=== PATIENT | female | born 1995 | race Caucasian/White ===

== ENCOUNTER 2017-08-17 04:12 | Inpatient (IN) | payer OTHER ==
[2017-08-17] MEDS ORDERED: PROMETHAZINE 25 MG/ML VIAL IM PRN (04:21)
[2017-08-17] MEDS ORDERED: MEPERIDINE HCL 25 MG/0.5 ML IV PRN (04:21)
[2017-08-17] MEDS ORDERED: CARBOPROST TROME 250 MCG/ML IM PRN (04:21)
[2017-08-17] MEDS ORDERED: BUTORPHANOL 1 MG/ML INJ IV PRN (04:21)
[2017-08-17] MEDS ORDERED: METHYLERGONOVINE 0.2MG/ML AMP IM PRN (04:21)
[2017-08-17] MEDS ORDERED: MIDAZOLAM HCL 2 MG/2 ML INJ IV PRN (04:21)
[2017-08-17] MEDS ORDERED: Ringers Lactate 1,000 ML IV PRN (04:21)
[2017-08-17] MEDS ORDERED: OXYTOCIN/LR 20 UNIT/1,000 ML BAG IV SCH ×2 (05:00→22:00)
[2017-08-17] MEDS ORDERED: Ringers Lactate 1,000 ML IV SCH (05:00)
[2017-08-17 05:11] LABS: RPR Titer ND
[2017-08-17 05:13] LABS: Absolute Lymphocytes (CBC) 2.1 K/uL (0.7-4.9); Absolute Monocytes 0.9 K/uL (0.1-1.3); Absolute Neutrophil 10.2 K/uL (1.8-8.0); Basophils % 0.5 % (0-1.3); Eosinophils % 1.4 % (0-4.4); Hematocrit 35.7 % (36.0-45.0); Lymphocytes % 15.4 % (15.3-44.8); MCH 30.5 pg (27.0-35.0); MCV 86.9 fL (80-100); MPV 8.2 fL (7.6-11.3); RBC Red Blood Cell Count 4.11 M/uL (3.86-4.86)
[2017-08-17 05:18] LABS: Urine Appearance CLEAR; Urine Bilirubin NEGATIVE (NEG); Urine Blood NEGATIVE (NEG); Urine Color YELLOW; Urine Glucose NEGATIVE (NEG); Urine Protein NEGATIVE (NEG); Urine Specific Gravity 1.015 (1.005-1.030); Urine Urobilinogen 0.2 mg/dL (0.2-1.0)
[2017-08-17 05:21] LABS: Urine Microscopic Reflex ORDER UMIC
[2017-08-17 05:33] LABS: Urine Bacteria 20-50 /HPF (<20); Urine Culture Reflex Order REFLEXED; Urine RBC NONE SEEN /HPF (NONE SEEN)
[2017-08-17 06:27] VITALS: BMI 36.5
--- NOTE | 2017-08-17 11:12 | PREOPHP ---
Date of Admission: 08/17/2017 A 21-year-old, primigravida, 39 weeks. Rh negative, has received RhoGAM during the . Immun e to Rubella. Negative beta strep screen. The patient is 2.5 cm, 50% effaced, but cervix is posteri or and baby is still high. This has all been discussed with the patient in the office. She is contr acting regularly, but is not uncomfortable at this point. We will increase Pitocin and await spontan eous rupture of membranes or baby's descent to a lower station where we can safely rupture of membran es. Full labor talk given. Anticipate delivery sometime later today. DARRYN/WALLY Voice ID: [id number]
--- NOTE | 2017-08-17 14:57 | PN ---
The patient is on 24 milliunits, emma regularly, but not really uncomfortable at this point. FHTs normal and reactive. The patient is now 3 cm, 50% effaced, vertex, -1 station. Rupture of memb ranes, clear fluid. Anticipate more rapid progress from this point forward. DARRYN/WALLY Voice ID: [id number] Report ID: [id number]
[2017-08-17] MEDS ORDERED: ROPIVACAINE HCL 100 ML IV PRN (16:33)
[2017-08-17] MEDS ORDERED: ROPIVACAINE HCL 0.2% 20ML AMP SQ ONE (17:00)
[2017-08-17] MEDS ORDERED: FENTANYL CITR 100 MCG/2 ML IV ONE (17:00)
--- NOTE | 2017-08-17 17:32 | PN ---
The patient is now 7 cm, 0 station. Starting to rotate the baby into more anterior position, 90-100% effaced, emma regularly. She is requesting epidural. We will call Anesthesia Department and get that done relatively soon. Anticipate delivery fairly soon. She is in the active phase at this point. DARRYN/WALLY Voice ID: [id number] Report ID: [id number]
[2017-08-17] MEDS ORDERED: METHYLERGONOVINE 0.2MG/ML AMP IM ONE (19:08)
[2017-08-17] MEDS ORDERED: LIDOCAINE 2% INJ, 20 mL 20 ML ONE (21:08)
[2017-08-17] MEDS ORDERED: DIPHENHYDRAMINE 25 MG TAB/CAP PO PRN (21:40)
[2017-08-17] MEDS ORDERED: IBUPROFEN 200 MG TAB PO PRN (21:40)
[2017-08-17] MEDS ORDERED: Oxycodone HCl/Acetaminophen 1 TAB TAB PO PRN (21:40)
[2017-08-17] MEDS ORDERED: DOCUSATE NA/SENNA CONC 1 TAB PO PRN (21:40)
[2017-08-17] MEDS ORDERED: ACETAMINOPHEN 500 MG TAB PO PRN (21:40)
[2017-08-17] MEDS ORDERED: BISACODYL 10 MG RECTAL SUPP RECT PRN (21:40)
--- NOTE | 2017-08-17 23:53 | PN ---
The patient is now approximately 9 to 9.5 cm. She has a little bit of cervix on the right side. She pushes very well, but she has a full bladder, we will empty her bladder, so she can push more effect ively. Check her again in about 10 to 15 minutes. By that time, she should be completely dilated or the cervix should be able to reduce. I think that we are ready for delivery soon. Baby looks good. Good variability. Apparently she was having some variables earlier, but it looks perfectly normal at this point. DARRYN/WALLY Voice ID: [id number] Report ID: [id number]
--- NOTE | 2017-08-18 05:27 | OP ---
Surgeon: Juan Sarmiento MD Indication And Procedure: A 21-year-old primigravida, 39 weeks, rupture of membranes at approximatel y 3 cm, clear fluid. During the labor, the patient received Stadol IV, Phenergan IM, and epidural an esthesia at approximately 7 cm. Noted to be persistent occiput posterior. Epidural was allowed to p artially wear off so the patient could push more effectively. Nonetheless, the patient had to push f or an hour and 40 minutes but finally delivered of a 7-pound estimated female, persistent occiput pos terior, Apgars 8 and 9. Small second-degree episiotomy to admit more room for the baby. Episiotomy repaired with 2-0 chromic under local infiltration. Schultze delivery of the placenta which was heav tristin calcified but otherwise normal. Estimated blood loss 300 cc. The patient is Rh negative, has re ceived RhoGAM during the . Beta strep negative. Final Diagnosis: Term intrauterine at 39 weeks, vaginal delivery, epidural anesthesia, per sistent occiput posterior. DARRYN/WALLY Voice ID: [id number] Report ID: [id number]
[2017-08-18] MEDS ORDERED: Rho(D) IG (HUMAN) 300 MCG SYR IM ONE (09:23)
[2017-08-18] MEDS: Oxycodone HCl/Acetaminophen 1 TAB TAB PO PRN ×3 (09:46→20:50)
--- NOTE | 2017-08-18 11:13 | DS ---
Hospital Course: A 21-year-old, primigravida, 39 weeks, delivered a 6 pound 13 ounce female. Apgars 8 and 9, after 1 hour and 40 minutes of pushing. Persistent occiput posterior. Second-degree episi otomy performed, repaired with 2-0 chromic. Schultze delivery of the placenta, inspected, noted to b e heavily calcified, but otherwise normal. A 300 cc blood loss. Rh negative, received RhoGAM during the . Baby is Rh positive, therefore she will receive RhoGAM before she is dismissed. Thi s morning, she is afebrile, ambulating, voiding. Lochia is normal. Will be dismissed either later t hattie or tomorrow morning to report back to my office in 6 weeks for followup, to report any temperatu re elevation of 100 degrees or greater, severe pain, heavy bleeding, or any other type of abnormaliti es. Dismissed with tramadol for analgesia, but only 10 tablets and she knows she can take Motrin. Cinda murcia said, if she wishes, she will be bottle feedings. No post epidural problems this morning. Final Diagnoses: Term intrauterine 39 weeks, vaginal delivery, persistent occiput posterio r, epidural anesthesia, Rh negative, RhoGAM pending. DARRYN/WALLY Voice ID: [id number] Report ID: [id number]
[2017-08-19 02:00] LABS: RPR (Rapid Plasma Reagin) NON-REACT (NON-REACT)
--- NOTE | 2017-08-19 07:41 | PN ---
No complaints or problems. Vital signs are all normal. We went over dismissal instructions again to day. She has no questions. She will be dismissed this morning. To return to my office in 6 weeks f or followup. DARRYN/WALLY Voice ID: [id number] Report ID: [id number]
[2017-08-19] MEDS: Oxycodone HCl/Acetaminophen 1 TAB TAB PO PRN (07:58)
[2017-08-19 08:12] VITALS: BP 133/75; TEMP 98.2
[2017-08-20 03:31] LABS: HBsAG Nonreactive (Nonreactive)
== END 2017-08-19 09:30 | disposition home or self-care (01) | DRG 775 ==
LOC: 2ND-WC 04:12
PROVIDERS: ADMIT Specialist; ATTEND Specialist
PROC: 10E0XZZ Delivery of Products of Conception, External Approach (ICD-10-PCS; principal; 2017-08-17)
PROC: 0W8NXZZ Division of Female Perineum, External Approach (ICD-10-PCS; 2017-08-17)
PROC: 10907ZC Drainage of Amniotic Fluid, Therapeutic from Products of Conception, Via Natural or Artificial Opening (ICD-10-PCS; 2017-08-17)
PROC: 3E0234Z Introduction of Serum, Toxoid and Vaccine into Muscle, Percutaneous Approach (ICD-10-PCS; 2017-08-18)
DX: O64.0XX0 Obstructed labor due to incomplete rotation of fetal head, not applicable or unspecified (principal); O26.893 Other specified pregnancy related conditions, third trimester; O99.513 Diseases of the respiratory system complicating pregnancy, third trimester; J45.909 Unspecified asthma, uncomplicated; Z37.0 Single live birth; Z3A.39 39 weeks gestation of pregnancy; Z67.41 Type O blood, Rh negative; Z87.891 Personal history of nicotine dependence; Z91.040 Latex allergy status
CPT/HCPCS: 36415; 81003; 81015; 85025; 85461; 86592; 86850; 86870; 86900; 86901; 87086; 87088; 87340; J0595; J2210; J2550; J2590; J2790; J2795; J3010

== ENCOUNTER 2018-01-30 11:36 | Emergency (ER) | payer OTHER ==
[2018-01-30] MEDS ORDERED: AMOX/K CLAV 875 MG TAB ONE (13:41)
[2018-01-30] MEDS ORDERED: ALBUTEROL 2.5 MG/3 ML NEB SOL ONE (13:41)
--- NOTE | 2018-01-30 14:03 | ER ---
Nurse's Notes [facility] Name: Susanne Fagan Age: 22 yrs Sex: Female : 1995 Arrival Date: 01/30/2018 Time: 11:40 Bed 25 Private MD: Juan Sarmiento B Diagnosis: Otitis media, unspecified, left ear;Bronchitis, not specified as acute or chronic Presentation: 01/30 11:53 Presenting complaint: Patient states: Fever, Left ear pain, sore throat stuffy nose and sg shortness of breath, bodyaches and fever off and is so limited on OTC medications per her provider. Transition of care: patient was not received from another setting of care. Onset of symptoms was January 30, 2018. Risk Assessment: Do you want to hurt yourself or someone else? Patient reports no desire to harm self or others. Initial Sepsis Screen: Does the patient meet any 2 criteria? No. Patient's initial sepsis screen is negative. Does the patient have a suspected source of infection? No. Patient's initial sepsis screen is negative. Care prior to arrival: None. 11:53 Method Of Arrival: Ambulatory 11:53 Acuity: MOLLY 4 sg Triage Assessment: 13:00 General: Appears in no apparent distress. well groomed, well developed, well nourished, kr2 Behavior is calm, cooperative, appropriate for age. 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 - Social history:: Smoking status: Patient uses tobacco products, denies chronic smoking, but will smoke occasionally. - Ebola Screening: : Patient negative for fever greater than or equal to 101.5 degrees Fahrenheit, and additional compatible Ebola Virus Disease symptoms Patient denies exposure to infectious person Patient denies travel to an Ebola-affected area in the 21 days before illness onset No symptoms or risks identified at this time. Screenin:00 Abuse screen: Denies threats or abuse. Denies injuries from another. Nutritional kr2 screening: No deficits noted. Tuberculosis screening: No symptoms or risk factors identified. Fall Risk None identified. Assessment: 13:00 General: Appears in no apparent distress. uncomfortable, well groomed, well developed, kr2 well nourished, Behavior is calm, cooperative, appropriate for age. Pain: Pain: Complains of pain in left ear Pain currently is 10 out of 10 on a pain scale. Quality of pain is described as aching, Is continuous, Alleviated by nothing. Neuro: Level of Consciousness is awake, alert, obeys commands, Oriented to person, place, time, situation, Appropriate for age. Cardiovascular: Capillary refill < 3 seconds in bilateral fingers Patient's skin is warm and dry. Respiratory: Reports cough that is productive, Airway is patent Respiratory effort is even, unlabored, Respiratory pattern is regular, symmetrical, Breath sounds are clear bilaterally. GI: Abdomen is flat, non-distended. EENT: Nares with drainage noted bilaterally Oral mucosa is moist. EENT: Throat is reddened Reports nasal congestion Sore throat. Derm: Skin is intact, is healthy with good turgor, Skin is pink, warm \T\ dry. 13:00 Musculoskeletal: Circulation, motion, and sensation intact. kr2 14:00 Reassessment: Patient appears in no apparent distress at this time. Patient and/or kr2 family updated on plan of care and expected duration. Pain level reassessed. Patient is alert, oriented x 3, equal unlabored respirations, skin warm/dry/pink. Patient states feeling better. Vital Signs: 11:55 BP 119 / 71; Pulse 110; Resp 20; Temp 97.6; Pulse Ox 99% on R/A; Weight 97.52 kg; sg Height 5 ft. 10 in. (177.80 cm); Pain 10/10; 13:30 BP 120 / 84; Pulse 100; Resp 18; Pulse Ox 100% on R/A; kr2 11:55 Body Mass Index 30.85 (97.52 kg, 177.80 cm) ED Course: 11:40 Patient arrived in ED. sb2 11:41 Juan Sarmiento MD is Private Physician. sb2 11:43 Leslie Scales FNP-C is [facility]. kb 11:43 Vu Sibley MD is Attending Physician. kb 11:53 Arm band placed on. sg 11:55 Triage completed. sg 13:00 Patient has correct armband on for positive identification. Bed in low position. Call kr2 light in reach. Side rails up X 1. Pulse ox on. NIBP on. Door closed. Warm blanket given. Head of bed elevated. 14:00 No provider procedures requiring assistance completed. Patient did not have IV access kr2 during this emergency room visit. 14:15 Shirley Salamanca, RN is Primary Nurse. kr2 Administered Medications: 13:37 Drug: Albuterol 2.5 mg Route: Inhalation; kr2 14:00 Follow up: Response: No adverse reaction; Marked relief of symptoms kr2 13:37 Drug: Amoxicillin 875 mg Route: PO; kr2 14:00 Follow up: Response: No adverse reaction kr2 Outcome: 14:00 Discharged to home ambulatory. kr2 14:00 Condition: good 14:00 Discharge instructions given to patient, Instructed on discharge instructions, follow up and referral plans. medication usage, Demonstrated understanding of instructions, follow-up care, medications, Prescriptions given X 2. 14:01 Discharge ordered by . elliott 14:16 Patient left the ED. kr2 Signatures: Leslie Scales, TOWER HAND-C TOWER HAND-Ckb Lauro Monet RN RN sg Shirley Salamanca, RN RN kr2 Megan Fowler sb2 Corrections: (The following items were deleted from the chart) 01/31 01:03 01/30 13:00 Pain: kr2 kr2 01/31 01:03 01/30 13:00 EENT: Nares with drainage noted bilaterally Oral mucosa is moist. kr2 kr2 01/31 01:03 01/30 13:00 EENT: Reports nasal congestion kr2 kr2
--- NOTE | 2018-01-30 14:03 | EDPHYS ---
Physician Documentation [facility] Name: Susanne Fagan Age: 22 yrs Sex: Female : 1995 Arrival Date: 01/30/2018 Time: 11:40 Bed 25 Private MD: Juan Sarmiento B ED Physician Vu Sibley HPI: 01/30 13:33 This 22 yrs old Female presents to ER via Ambulatory with complaints of Flu kb Symptoms. 13:33 The patient or guardian reports cough, that is intermittent, described as moderate, kb with productive sputum, flu symptoms, low-grade fever, myalgias. The patient has not experienced similar symptoms in the past. The patient has not recently seen a physician. 13:34 Onset: The symptoms/episode began/occurred 2 day(s) ago. Severity of symptoms: At their kb worst the symptoms were moderate, in the emergency department the symptoms are unchanged. Modifying factors: The symptoms are alleviated by nothing, the symptoms are aggravated by nothing. Associated signs and symptoms: Pertinent positives: earache, fever, rhinorrhea, sore throat, vomiting, Pertinent negatives: chest pain, diarrhea, nausea. 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 - Social history:: Smoking status: Patient uses tobacco products, denies chronic smoking, but will smoke occasionally. - Ebola Screening: : Patient negative for fever greater than or equal to 101.5 degrees Fahrenheit, and additional compatible Ebola Virus Disease symptoms Patient denies exposure to infectious person Patient denies travel to an Ebola-affected area in the 21 days before illness onset No symptoms or risks identified at this time. ROS: 13:31 Cardiovascular: Negative for chest pain, palpitations, and edema, Abdomen/GI: Negative kb for abdominal pain, nausea, vomiting, diarrhea, and constipation, Back: Negative for injury and pain, : Negative for injury, bleeding, discharge, and swelling, MS/Extremity: Negative for injury and deformity, Skin: Negative for injury, rash, and discoloration, Neuro: Negative for headache, weakness, numbness, tingling, and seizure. 13:31 Constitutional: Positive for body aches, chills, fatigue, fever, malaise, Negative for poor PO intake, weight loss. 13:31 ENT: Positive for ear pain, rhinorrhea, sinus congestion, sore throat. 13:31 Respiratory: Positive for cough, with clear sputum, Negative for dyspnea on exertion, hemoptysis, orthopnea, pleurisy, shortness of breath, sputum production, wheezing. Exam: 13:31 Constitutional: This is a well developed, well nourished patient who is awake, alert, kb and in no acute distress. Head/Face: Normocephalic, atraumatic. Neck: Trachea midline, no thyromegaly or masses palpated, and no cervical lymphadenopathy. Supple, full range of motion without nuchal rigidity, or vertebral point tenderness. No Meningismus. Chest/axilla: Normal chest wall appearance and motion. Nontender with no deformity. No lesions are appreciated. Cardiovascular: Regular rate and rhythm with a normal S1 and S2. No gallops, murmurs, or rubs. Normal PMI, no JVD. No pulse deficits. Abdomen/GI: Soft, non-tender, with normal bowel sounds. No distension or tympany. No guarding or rebound. No evidence of tenderness throughout. Skin: Warm, dry with normal turgor. Normal color with no rashes, no lesions, and no evidence of cellulitis. MS/ Extremity: Pulses equal, no cyanosis. Neurovascular intact. Full, normal range of motion. Neuro: Awake and alert, GCS 15, oriented to person, place, time, and situation. Cranial nerves II-XII grossly intact. Motor strength 5/5 in all extremities. Sensory grossly intact. Cerebellar exam normal. Normal gait. 13:31 Respiratory: the patient does not display signs of respiratory distress, Respirations: normal, Breath sounds: wheezing: expiratory that is moderate, is scattered. 13:33 ENT: External ear(s): are unremarkable, Ear canal(s): are normal, TM's: bulging, on the kb left, erythema, that is moderate, on the left, Nose: is normal, Mouth: is normal, Posterior pharynx: is normal. Vital Signs: 11:55 BP 119 / 71; Pulse 110; Resp 20; Temp 97.6; Pulse Ox 99% on R/A; Weight 97.52 kg; sg Height 5 ft. 10 in. (177.80 cm); Pain 10/10; 13:30 BP 120 / 84; Pulse 100; Resp 18; Pulse Ox 100% on R/A; kr2 11:55 Body Mass Index 30.85 (97.52 kg, 177.80 cm) MDM: 13:00 Patient medically screened. [facility] 13:31 Data reviewed: vital signs, nurses notes. Data interpreted: Pulse oximetry: on room air kb is 99 %. Interpretation: normal. Counseling: I had a detailed discussion with the patient and/or guardian regarding: the historical points, exam findings, and any diagnostic results supporting the discharge/admit diagnosis, lab results, the need for outpatient follow up, a family practitioner, to return to the emergency department if symptoms worsen or persist or if there are any questions or concerns that arise at home. 01/30 11:59 Order name: Strep 01/30 11:59 Order name: Flu 01/30 12:34 Order name: Group A Streptococcus Rapid Sc; Complete Time: 12:41 EDMS 01/30 12:34 Order name: Influenza Screen (A ; Complete Time: 12:41 EDMS Administered Medications: 13:37 Drug: Albuterol 2.5 mg Route: Inhalation; kr2 14:00 Follow up: Response: No adverse reaction; Marked relief of symptoms kr2 13:37 Drug: Amoxicillin 875 mg Route: PO; kr2 14:00 Follow up: Response: No adverse reaction 2 Disposition: 01/30/18 14:01 Discharged to Home. Impression: Otitis media, unspecified, left ear, Bronchitis, not specified as acute or chronic. - Condition is Stable. - Discharge Instructions: Otitis Media, Adult, [id number], Acute Bronchitis, [id number]. - Prescriptions for Amoxicillin 875 mg Oral Tablet - take 1 tablet by ORAL route every 12 hours for 10 days; 20 tablet. Albuterol Sulfate 90 mcg/actuation - inhale 1-2 puff by INHALATION route every 4-6 hours; 1 Inhaler. - Medication Reconciliation Form, Thank You Letter, Antibiotic Education, Prescription Opioid Use form. - Follow up: Emergency Department; When: As needed; Reason: Worsening of condition. Follow up: Private Physician; When: 2 - 3 days; Reason: Recheck today's complaints, Continuance of care, Re-evaluation by your physician. Addendum: 02/01/2018 07:22 Co-signature as Attending Physician, Vu Sibley MD I agree with the assessment and c foley plan of care. Signatures: Dispatcher [employer] EDMS Leonardo Scalesistin, ANAHY-C ANAHY-Lauro Lee RN RN sg Anderson, Corey, MD MD cha Reaves, Karey, RN RN kr2 Corrections: (The following items were deleted from the chart) 01/30 13:33 13:31 ENT: Positive for rhinorrhea, sinus congestion, sore throat, kb kb 13:33 13:31 Constitutional: This is a well developed, well nourished patient who is awake, kb alert, and in no acute distress. Head/Face: Normocephalic, atraumatic. ENT: Nares patent. No nasal discharge, no septal abnormalities noted. Tympanic membranes are normal and external auditory canals are clear. Oropharynx with no redness, swelling, or masses, exudates, or evidence of obstruction, uvula midline. Mucous membranes moist. Neck: Trachea midline, no thyromegaly or masses palpated, and no cervical lymphadenopathy. Supple, full range of motion without nuchal rigidity, or vertebral point tenderness. No Meningismus. Chest/axilla: Normal chest wall appearance and motion. Nontender with no deformity. No lesions are appreciated. Cardiovascular: Regular rate and rhythm with a normal S1 and S2. No gallops, murmurs, or rubs. Normal PMI, no JVD. No pulse deficits. Abdomen/GI: Soft, non-tender, with normal bowel sounds. No distension or tympany. No guarding or rebound. No evidence of tenderness throughout. Skin: Warm, dry with normal turgor. Normal color with no rashes, no lesions, and no evidence of cellulitis. MS/ Extremity: Pulses equal, no cyanosis. Neurovascular intact. Full, normal range of motion. Neuro: Awake and alert, GCS 15, oriented to person, place, time, and situation. Cranial nerves II-XII grossly intact. Motor strength 5/5 in all extremities. Sensory grossly intact. Cerebellar exam normal. Normal gait. kb 14:16 14:01 01/30/2018 14:01 Discharged to Home. Impression: Otitis media, unspecified, left kr2 ear; Bronchitis, not specified as acute or chronic. Condition is Stable. Discharge Instructions: Otitis Media, Adult, [id number], Acute Bronchitis, [id number]. Prescriptions for Amoxicillin 875 mg Oral Tablet - take 1 tablet by ORAL route every 12 hours for 10 days; 20 tablet, Albuterol Sulfate 90 mcg/actuation - inhale 1-2 puff by INHALATION route every 4-6 hours; 1 Inhaler. and Forms are Medication Reconciliation Form, Thank You Letter, Antibiotic Education, Prescription Opioid Use. Follow up: Emergency Department; When: As needed; Reason: Worsening of condition. Follow up: Private Physician; When: 2 - 3 days; Reason: Recheck today's complaints, Continuance of care, Re-evaluation by your physician. kb
[2018-01-30 16:10] VITALS: BP 119/71; TEMP 97.6; O2SAT 99
== END 2018-01-30 14:16 | disposition home or self-care (01) ==
LOC: ER 11:36
DX: J40 Bronchitis, not specified as acute or chronic (principal); H66.92 Otitis media, unspecified, left ear; Z72.0 Tobacco use
CPT/HCPCS: 87070; 87081; 87804; 99284

== ENCOUNTER 2018-04-16 19:19 | Emergency (ER) | payer OTHER ==
[2018-04-16 20:20] LABS: Urine Blood TRACE (NEG); Urine Glucose NEGATIVE (NEG); Urine Protein 1+ (NEG); Urine Specific Gravity 1.015 (1.005-1.030)
[2018-04-16 20:57] LABS: Absolute Lymphocytes (CBC) 2.2 K/uL (0.7-4.9); Absolute Monocytes 0.7 K/uL (0.1-1.3); Absolute Neutrophil 8.9 K/uL (1.8-8.0); Basophils % 0.9 % (0-1.3); Eosinophils % 0.4 % (0-4.4); Hematocrit 40.2 % (36.0-45.0); Lymphocytes % 18.6 % (15.3-44.8); MPV 7.7 fL (7.6-11.3); Monocytes % 5.8 % (3.3-12.3); RBC Red Blood Cell Count 4.49 M/uL (3.86-4.86)
[2018-04-16 21:15] LABS: Urine Amorphous Sediment 4+ /HPF (NONE SEEN); Urine Bacteria <20 /HPF (<20); Urine Culture Reflex Order NOT NEEDED; Urine RBC <5 /HPF (NONE SEEN)
[2018-04-16 21:31] LABS: BUN Blood Urea Nitrogen 6 mg/dL (7-18); Bicarbonate 26 mmol/L (21-32); Glucose Level 88 mg/dL (74-106); HCG, Quantitative 12762 mIU/mL (1-3); Potassium 3.6 mmol/L (3.5-5.1); Sodium Level 140 mmol/L (136-145)
[2018-04-16] MEDS ORDERED: ACETAMINOPHEN 500 MG TAB ONE (23:17)
--- NOTE | 2018-04-16 23:49 | ER ---
Nurse's Notes [facility] Name: Susanne Fagan Age: 22 yrs Sex: Female : 1995 Arrival Date: 04/16/2018 Time: 19:21 Bed 18 Private MD: Juan Sarmiento B Diagnosis: Threatened Presentation: 04/16 19:29 Presenting complaint: Patient states: She has had abdominal cramping, low back pain and aj1 light vaginal bleeding for the past 3 days. States that she saw her OB yesterday and was told that everything was normal with her . Patient reports that her pain is worse today. States that she is RH negative. Transition of care: patient was not received from another setting of care. Onset of symptoms was April 14, 2018. Risk Assessment: Do you want to hurt yourself or someone else? Patient reports no desire to harm self or others. Initial Sepsis Screen: Does the patient meet any 2 criteria? No. Patient's initial sepsis screen is negative. Does the patient have a suspected source of infection? No. Patient's initial sepsis screen is negative. Care prior to arrival: None. 19:29 Method Of Arrival: Ambulatory aj1 19:29 Acuity: MOLLY 3 aj1 Triage Assessment: 19:31 General: Appears in no apparent distress. uncomfortable, Behavior is cooperative, aj1 restless. Pain: Complains of pain in low back area, right lower quadrant and left lower quadrant Pain currently is 10 out of 10 on a pain scale. GI: Reports lower abdominal pain. 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 - Social history:: Smoking status: Patient uses tobacco products, smokes one-half pack cigarettes per day. - Ebola Screening: : Patient denies travel to an Ebola-affected area in the 21 days before illness onset. Screenin:33 Abuse screen: Denies threats or abuse. Denies injuries from another. Nutritional aj1 screening: No deficits noted. Tuberculosis screening: No symptoms or risk factors identified. 22:13 Fall Risk None identified. ak1 Assessment: 19:33 General: Appears in no apparent distress. uncomfortable, Behavior is cooperative, aj1 restless. Pain: Complains of pain in left lower quadrant and right lower quadrant and low back area Pain does not radiate. Pain currently is 10 out of 10 on a pain scale. Quality of pain is described as crampy, Pain began 2-3 days ago. Neuro: Level of Consciousness is awake, alert, obeys commands, Oriented to person, place, time, situation. Cardiovascular: Patient's skin is warm and dry. Respiratory: Airway is patent Respiratory effort is even, unlabored, Respiratory pattern is regular, symmetrical. GI: Abdomen is round Bowel sounds present X 4 quads. Abd is soft and non tender X 4 quads. Reports lower abdominal pain, nausea, vomiting. : Reports vaginal bleeding that is light flow. EENT: No signs and/or symptoms were reported regarding the EENT system. Derm: No signs and/or symptoms reported regarding the dermatologic system. Skin is pink, warm \T\ dry. normal. Musculoskeletal: No signs and/or symptoms reported regarding the musculoskeletal system. Circulation, motion, and sensation intact. 20:30 Reassessment: Patient appears in no apparent distress at this time. No changes from aj1 previously documented assessment. Patient and/or family updated on plan of care and expected duration. Pain level reassessed. Patient is alert, oriented x 3, equal unlabored respirations, skin warm/dry/pink. 21:14 Reassessment: Patient appears in no apparent distress at this time. No changes from aj1 previously documented assessment. Patient and/or family updated on plan of care and expected duration. Pain level reassessed. Patient is alert, oriented x 3, equal unlabored respirations, skin warm/dry/pink. 23:02 Reassessment: pt informed of wait for rogam IM injections. pt informed of no bleeding ak1 found during pelvic exam. 04/17 00:00 Reassessment: Patient and/or family updated on plan of care and expected duration. Pain ea level reassessed. Patient is alert, oriented x 3, equal unlabored respirations, skin warm/dry/pink. Discharge instructions given to patient, verbalized the understanding of instructions. Patient denies pain at this time. Vital Signs: 04/16 19:31 BP 120 / 77; Pulse 98; Resp 18; Temp 98.5(O); Pulse Ox 100% on R/A; Weight 94.8 kg (R); aj1 Height 5 ft. 8 in. (172.72 cm) (R); Pain 10/10; 21:14 BP 114 / 75; Pulse 69; Resp 18; Pulse Ox 97% on R/A; aj1 19:31 Body Mass Index 31.78 (94.80 kg, 172.72 cm) aj1 Vitals: 20:34 Heart Tones 152. aj1 ED Course: 19:21 Patient arrived in ED. am2 19:22 Juan Sarmiento MD is Private Physician. am2 19:26 Tay Asher NP is PHCP. pm1 19:26 Corazon Castillo MD is Attending Physician. pm1 19:29 Cori Driver, FLORENCE is Primary Nurse. aj1 19:31 Triage completed. aj1 19:31 Arm band placed on Patient placed in an exam room. aj1 19:33 Patient has correct armband on for positive identification. Bed in low position. Call aj1 light in reach. Side rails up X 1. 19:33 No provider procedures requiring assistance completed. aj1 20:50 Inserted saline lock: 22 gauge in right antecubital area, using aseptic technique. lt1 20:50 Initial lab(s) drawn, by ca, sent to lab. Urine collected: clean catch specimen, clear. lt1 22:37 pelvic exam. no blood noted. ak1 23:47 Juan Sarmiento MD is Referral Physician. pm1 02 00:00 IV discontinued, intact, bleeding controlled, No redness/swelling at site. Pressure ea dressing applied. Administered Medications: 04/16 23:08 Drug: Tylenol 500 mg Route: PO; ak1 23:49 Follow up: Response: No adverse reaction ak1 23:40 Drug: RhoGAM (Human) 300 mcg Route: IM; Site: right gluteus; ak1 23:50 Follow up: Response: No adverse reaction ak1 Outcome: 22:37 Condition: good ak1 23:48 Discharge ordered by . pm1 23:55 Instructed on discharge instructions, follow up and referral plans. Demonstrated ea understanding of instructions, follow-up care. 04/17 00:00 Discharged to home ambulatory. ea 00:07 Patient left the ED. ea Signatures: Cori Driver RN RN aj1 Kylah Qiu RN RN ak1 Tay Asher, DRAG SAWYER DRAG SAWYER pm1 Brie Feliz am2 Mary Ram RN RN ea Tran, Leah 1
--- NOTE | 2018-04-16 23:49 | EDPHYS ---
Physician Documentation [facility] Name: Susanne Fagan Age: 22 yrs Sex: Female : 1995 Arrival Date: 04/16/2018 Time: 19:21 Bed 18 Private MD: Juan Sarmiento B ED Physician Corazon Castillo HPI: 04/16 21:00 This 22 yrs old Female presents to ER via Ambulatory with complaints of pm1 Abdominal Cramping - 17 wks gestation. 21:00 The patient presents to the emergency department with abdominal pain, of the suprapubic pm1 area and low back area, that started 3 day(s) ago, described as crampy, vaginal bleeding, that is light, with no clots. The estimated gestational age is 17 weeks. course: care: private OB physician, Dr. Sarmiento, the patient's last check was April 15, 2018. 21:00 Previous pregnancies: in previous pregnancies patient has had no complications. pm1 Associated signs and symptoms: Pertinent positives: abdominal pain, Pertinent negatives: diarrhea, dysuria, fever, nausea, shortness of breath, vaginal discharge, vomiting. The patient has not experienced similar symptoms in the past. The patient has been recently seen by a physician: Dr. Sarmiento yesterday, Same complaint. pelvic exam performed and told that OS closed. Scheduled US in a few weeks. No rhogam was given. 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 - Social history:: Smoking status: Patient uses tobacco products, smokes one-half pack cigarettes per day. - Ebola Screening: : Patient denies travel to an Ebola-affected area in the 21 days before illness onset. ROS: 21:00 Constitutional: Negative for fever, chills, and weight loss, Eyes: Negative for injury, pm1 pain, redness, and discharge, ENT: Negative for injury, pain, and discharge, Neck: Negative for injury, pain, and swelling, Cardiovascular: Negative for chest pain, palpitations, and edema, Respiratory: Negative for shortness of breath, cough, wheezing, and pleuritic chest pain. 21:00 Back: Negative for injury and pain, MS/Extremity: Negative for injury and deformity, Skin: Negative for injury, rash, and discoloration. 21:00 Neuro: Negative for headache, weakness, numbness, tingling, and seizure. 21:00 Abdomen/GI: Positive for abdominal pain, of the suprapubic area, Negative for nausea, vomiting, and diarrhea. 21:00 : Positive for vaginal bleeding, Negative for urinary symptoms, flank pain. Exam: 21:00 Constitutional: This is a well developed, well nourished patient who is awake, alert, pm1 and in no acute distress. Head/Face: Normocephalic, atraumatic. Eyes: Pupils equal round and reactive to light, extra-ocular motions intact. Lids and lashes normal. Conjunctiva and sclera are non-icteric and not injected. Cornea within normal limits. Periorbital areas with no swelling, redness, or edema. ENT: Nares patent. No nasal discharge, no septal abnormalities noted. Tympanic membranes are normal and external auditory canals are clear. Oropharynx with no redness, swelling, or masses, exudates, or evidence of obstruction, uvula midline. Mucous membranes moist. Neck: Trachea midline, no thyromegaly or masses palpated, and no cervical lymphadenopathy. Supple, full range of motion without nuchal rigidity, or vertebral point tenderness. No Meningismus. Chest/axilla: Normal chest wall appearance and motion. Nontender with no deformity. No lesions are appreciated. Cardiovascular: Regular rate and rhythm with a normal S1 and S2. No gallops, murmurs, or rubs. Normal PMI, no JVD. No pulse deficits. Respiratory: Lungs have equal breath sounds bilaterally, clear to auscultation and percussion. No rales, rhonchi or wheezes noted. No increased work of breathing, no retractions or nasal flaring. Abdomen/GI: Soft, non-tender, with normal bowel sounds. No distension or tympany. No guarding or rebound. No evidence of tenderness throughout. Back: No spinal tenderness. No costovertebral tenderness. Full range of motion. Skin: Warm, dry with normal turgor. Normal color with no rashes, no lesions, and no evidence of cellulitis. MS/ Extremity: Pulses equal, no cyanosis. Neurovascular intact. Full, normal range of motion. 22:45 : Pelvic Exam: External exam: is normal, Speculum exam: no bleeding is noted, os that pm1 is closed, discharge, is not appreciated, Kylah RN. Vital Signs: 19:31 BP 120 / 77; Pulse 98; Resp 18; Temp 98.5(O); Pulse Ox 100% on R/A; Weight 94.8 kg (R); aj1 Height 5 ft. 8 in. (172.72 cm) (R); Pain 10/10; 21:14 BP 114 / 75; Pulse 69; Resp 18; Pulse Ox 97% on R/A; aj1 19:31 Body Mass Index 31.78 (94.80 kg, 172.72 cm) aj1 MDM: 19:46 Patient medically screened. pm1 20:36 ED course: FHT 152. pm1 23:47 Data reviewed: vital signs. Data interpreted: Pulse oximetry: on room air is 97 %. pm1 Interpretation: normal. Counseling: I had a detailed discussion with the patient and/or guardian regarding: the historical points, exam findings, and any diagnostic results supporting the discharge/admit diagnosis, lab results, the need for outpatient follow up, for definitive care, an OB/Gyne specialist, to return to the emergency department if symptoms worsen or persist or if there are any questions or concerns that arise at home. 04/16 19:58 Order name: Quantitative Hcg; Complete Time: 21:35 pm1 04/16 19:58 Order name: Abo/rh Typing pm1 04/16 19:58 Order name: Basic Metabolic Panel; Complete Time: 21:35 pm1 04/16 19:58 Order name: CBC with Diff; Complete Time: 21:35 pm1 04/16 19:59 Order name: Urine Microscopic Only; Complete Time: 21:35 pm1 04/16 20:09 Order name: Urine Dipstick--Ancillary (enter results); Complete Time: 20:21 ag4 04/16 20:09 Order name: Urine --Ancillary (enter results); Complete Time: 20:21 ag4 04/16 22:51 Order name: Rh Typing EDMS 04/16 22:51 Order name: Antibody Screen [facility] 04/16 22:51 Order name: Fetalscreen [facility] 04/16 22:51 Order name: Cord Rh type [facility] 04/16 22:51 Order name: Rhogam [facility] 04/16 19:58 Order name: Urine Dipstick-Ancillary (obtain specimen); Complete Time: 20:56 pm1 04/16 19:58 Order name: Urine Test (obtain specimen); Complete Time: 20:56 pm1 04/16 19:58 Order name: IV Saline Lock; Complete Time: 20:56 pm1 04/16 19:58 Order name: Labs collected and sent; Complete Time: 20:56 pm1 04/16 19:58 Order name: NPO; Complete Time: 20:56 pm1 04/16 19:58 Order name: FHT's; Complete Time: 20:55 pm1 04/16 21:36 Order name: Pelvic Exam Setup; Complete Time: 21:55 pm1 Administered Medications: 23:08 Drug: Tylenol 500 mg Route: PO; ak1 23:49 Follow up: Response: No adverse reaction ak1 23:40 Drug: RhoGAM (Human) 300 mcg Route: IM; Site: right gluteus; ak1 23:50 Follow up: Response: No adverse reaction ak1 Disposition: 04/17 04:39 Co-signature as Attending Physician, Corazon Castillo MD. ma2 Disposition: 04/16/18 23:48 Discharged to Home. Impression: Threatened . - Condition is Stable. - Discharge Instructions: Threatened Miscarriage, Vaginal Bleeding During , Second Trimester, Pelvic Rest, Second Trimester of , [id number]. - Medication Reconciliation Form, Thank You Letter, Antibiotic Education, Prescription Opioid Use form. - Follow up: Emergency Department; When: As needed; Reason: Worsening of condition. Follow up: Juan Sarmiento MD; When: 2 - 3 days; Reason: Recheck today's complaints, Continuance of care, Re-evaluation by your physician. - Problem is new. - Symptoms have improved. Signatures: Dispatcher [employer] [facility] Cori Driver RN RN aj1 Kylah Qiu RN RN ak1 Tay Asher, TAX ACCOUNTANT TAX ACCOUNTANT pm1 Ram, FLORENCE Hernandez RN, ea, Mohammad, MD MD ma2 Corrections: (The following items were deleted from the chart) 00:07 04/16 23:48 04/16/2018 23:48 Discharged to Home. Impression: Threatened . ea Condition is Stable. Forms are Medication Reconciliation Form, Thank You Letter, Antibiotic Education, Prescription Opioid Use. Follow up: Emergency Department; When: As needed; Reason: Worsening of condition. Follow up: Juan Sarmiento; When: 2 - 3 days; Reason: Recheck today's complaints, Continuance of care, Re-evaluation by your physician. Problem is new. Symptoms have improved. pm1
[2018-04-17 00:26] VITALS: TEMP 98.5
[2018-04-17 00:28] VITALS: BP 114/75; O2SAT 97
== END 2018-04-17 00:07 | disposition home or self-care (01) ==
LOC: ER 19:19
DX: O20.0 Threatened abortion (principal); Z3A.17 17 weeks gestation of pregnancy; J45.909 Unspecified asthma, uncomplicated; Z91.040 Latex allergy status; F17.210 Nicotine dependence, cigarettes, uncomplicated
CPT/HCPCS: 36415; 80048; 81003; 81015; 81025; 84702; 85025; 86850; 86900; 86901; 96372; 99284; J2790

== ENCOUNTER 2021-11-04 20:44 | Inpatient (IN) | payer OTHER ==
[2021-11-04] MEDS ORDERED: BUTORPHANOL 1 MG/ML INJ IV PRN (21:15)
[2021-11-04] MEDS ORDERED: METHYLERGONOVINE 0.2MG/ML AMP IM PRN (21:15)
[2021-11-04] MEDS ORDERED: PROMETHAZINE INJ 25 MG/ML AMP IM PRN (21:15)
[2021-11-04] MEDS ORDERED: Ringers Lactate 1,000 ML IV PRN (21:15)
[2021-11-04] MEDS ORDERED: OXYTOCIN/LR 20 UNIT/1,000 ML BAG IV ONE (21:35)
[2021-11-04] MEDS ORDERED: Ringers Lactate 1,000 ML IV SCH (22:00)
[2021-11-04 22:32] LABS: Specific Gravity 1.018 (1.005-1.030); Urine Bilirubin NEGATIVE (Negative); Urine Blood Negative (Negative); Urine Clarity Clear (Clear); Urine Color Light-Yellow (Yellow); Urine Glucose NEGATIVE (Negative); Urine Mucus 4+ /HPF (None Seen); Urine Protein TRACE (Negative); Urine RBC <5 /HPF (None Seen); Urine Urobilinogen Normal (Normal)
[2021-11-04 22:35] LABS: Absolute Lymphocytes (CBC) 1.8 K/uL (0.7-4.9); Hematocrit 31.5 % (36.0-45.0); Lymphocytes % 9.4 % (15.3-44.8); MPV 8.1 fL (7.6-11.3)
--- OUTSIDE RECORDS SUMMARY | 2021-11-04 22:47 | XMS REPORT | Continuity of Care Document ---
:[address] [facility] t Address [address] [place] [address] Care Team Providers Name Role Phone PAULY JACOBS Primary Care Physician Unavailable EMANI JENNINGS Attending Clinician Unavailable PAULY JACOBS Attending Clinician Unavailable Doctor Unassigned, [place] Attending Clinician Unavailable MATEUS WHITMAN Attending Clinician Unavailable Pauly Laird Attending Clinician [phone] NIESHA Attending Clinician Unavailable NIESHA Admitting Clinician Unavailable Payers Payer Name Policy Type Policy Number Effective Date Expiration Date [facility] [id number] 2021 [facility] MEDICAID 00:00:00 [facility] [id number] 2021 2021 [facility] 00:00:00 00:00:00 BENJI [id number] 2020 [facility] 00:00:00 SSA S49 [place] DDS [id number] [place] Problems Condition Condition Condition Status Onset Resolution Last Treating Co mments Source Name Details Category Date Date Treatment Clinician Date Rubella Rubella Disease Active Overview: Univ ers non-immune non-immune -11 Formattin ity of status, status, 00:00: g of this [place] antepartum antepartum 00 note Me dical might be Branch different from the original. Address pp Supervisio Supervisio Disease Active Overview : Univers n of n of 5-10 Formattin ity of high-risk high-risk 00:00: g of this [place] 00 note Medi disha with with might be Branch insufficie insufficie different nt nt from the original. care care See scanned records Dr Sarmiento Negative carrier screen reportPan bhargavi negative baby boy 3-24-22H/ H 12.739 Hep B non reactive HIV negRubell a immuneBlo od type O-syphili s non reactiveH ep c non reactive Multiparit Multiparit Disease Active U nivers y y 5-10 ity of 00:00: Medical Branch Obesity in Obesity in Disease Active U nivers 5-10 ity of 00:00: Medical Branch History of History of Disease Active Overview : Univers 5-10 Formattin ity of section section 00:00: g of this note Medical might be Branch different from the original. X1, desires Desires Desires Disease Active Univers 5-10 ity of (vaginal (vaginal 00:00: [place] 00 Medical after after Branch ) ) trial trial Tobacco Tobacco Disease Active Overview: Univ ers use during use during 5-10 Formattin ity of 00:00: g of this [place] 00 note Medical might be Branch different from the original. Reports quit 07/02/21 Rh Rh Disease Active Overview: Univer s negative negative 5-10 Formattin ity of state in state in 00:00: g of this [place] as antepartum antepartum 00 note Me dical period period might be Branch different from the original. Rhogam at 28 weeks History of History of Disease Active U nivers asthma asthma 5-10 ity of 00:00: [place] [facility] Allergies, Adverse Reactions, Alerts Allergy Allergy Status Severity Reaction(s) Onset Inactive Treating Comm ents Source Name Type Date Date Clinician Latex Propensi Active Hives Univers ty to 5-16 ity of adverse 00:00: [place] reaction 00 Medical s Branch LATEX DRUG Active Hives Univers INGREDI 5-16 ity of 00:00: [place] [address] Medical Branch Social History Social Habit Start Date Stop Date Quantity Comments Source ASSERTION 2021-02-27 University of 00:00:00 [facility] [place] [facility] Exposure to 2021-06-29 2021-07-09 Not sure [facility] SARS-CoV-2 (event) 00:00:00 09:50:00 [facility] [place] [facility] Cigarettes smoked 2021-07-09 2021-07-09 Univers ity of current (pack per 00:00:00 00:00:00 ) - Reported Branch Tobacco use and 2021-07-09 2021-07-09 Never used Universit y of exposure 00:00:00 00:00:00 [facility] [place] [facility] Alcohol intake 2021-07-09 2021-07-09 Ex-drinker University 00:00:00 00:00:00 (finding) [facility] [place] [facility] Tobacco Comment 2021-07-09 2021-07-09 3-4 ciggs a day Univ ersity of 00:00:00 00:00:00 [facility] [place] [facility] History of tobacco 2021-07-02 Cigarette Smoker University of use 00:00:00 [facility] [place] [facility] Sex Assigned At [address] [facility] y of 00:00:00 00:00:00 [facility] [place] [facility] Smoking Status Start Date Stop Date Source Former smoker 2021-07-09 00:00:00 2021-07-09 00:00:00 [facility] Medications Ordered Filled Start Stop Current Ordering Indication Dosage Frequency Signature Comments Components Source Medication Medication Date Date Medication? Clinician (SIG) Name Name No known No Univers medications 5-10 ity of 09:54: [address] albuterol 2021- No [id number] 2{puff} Inhale 2 Univers 90 11-07 100 Puffs ity of mcg/actuati 00:00: 00:00 every 4 [place] on inhaler 00 :00 (four) Medical hours as Branch needed for Wheezing or Shortness of Breath. Vital Signs Vital Name Observation Time Observation Value Comments Source Systolic blood 2021-07-09 14:48:00 105 mm[Hg] Univer sity of pressure [facility] [place] [facility] Diastolic blood 2021-07-09 14:48:00 61 mm[Hg] Unive rsity of pressure [facility] [place] [facility] Heart rate 2021-07-09 14:48:00 74 /[facility] Body temperature 2021-07-09 14:48:00 36.61 [facility] [place] [facility] Respiratory rate 2021-07-09 14:48:00 20 /min [facility] Body height 2021-07-09 14:48:00 170.2 cm [facility] Body weight 2021-07-09 14:48:00 94.892 kg [facility] BMI 2021-07-09 14:48:00 32.77 kg/m2 [facility] Procedures Procedure Date / Time Performing Clinician Source Performed EXTERNAL PROVIDER RECORDS 2021-08-06 05:01:00 Doctor Unassigned, [facility] [place] [facility] GLUCOSE 1 HOUR POST 2021-07-09 15:52:00 Pauly Jacobs [facility] CBC WITH DIFF 2021-07-09 15:52:00 Pauly Jacobs [facility] RUBELLA SCREEN IGG 2021-07-09 15:52:[address] [facility] VZV ANTIBODY SCREEN 2021-07-09 15:52:00 Pauly Jacobs [facility] HEPATITIS B SURFACE 2021-07-09 15:52:00 Pauly Jacobs [facility] PANEL IDENTIFICATION 2021-07-09 15:52:00 Pauly Jacobs [facility] HB ABO GROUPING 2021-07-09 15:52:00 Pauly Jacobs [facility] ANTIBODY TITER INTERPS 2021-07-09 15:52:00 Pauly Jacobs [facility] URINE CULTURE 2021-07-09 15:52:00 Pauly Jacobs [facility] GC & CHLAMYDIA AMPLIFIED 2021-07-09 15:52:00 Pauly Jacobs [facility] ASSAY [facility] HIV 1/2 AG-AB WITH REFLEX 2021-07-09 15:52:00 Pauly Jacobs [facility] GALV ONLY - SYPHILIS 2021-07-09 15:52:00 [facility] POCT TEST 2021-07-09 00:00:00 Pauly Jacobs of [facility] [place] [facility] POCT URINALYSIS W/O 2021-07-09 00:00:[address] [facility] Encounters Start End Encounter Admission Attending Care Care Encounter Source Date/Time Date/Time Type Type Clinicians Facility Department ID 2021-08-15 2021-08-15 [facility] [id number] Univers 09:45:00 09:45:00 EMANI ramirez [facility] 2021-08-06 2021-08-06 [facility] [id number] Univers 09:45:00 09:45:00 PAULY ramirez o f [facility] [place] [facility] 2021-08-06 2021-08-[address] [id number] Univers 00:00:00 00:00:00 Only Unassigned, PATRICE [id number] ity of [place] [facility] [id number] Rick as [phone] [address] 2021-07-25 2021-07-25 [facility] [id number] Univers 13:15:00 13:15:00 MATEUS ramirez [facility] 2021-07-09 2021-07-09 [facility] [id number] Univers 10:00:00 10:26:50 Pauly [place] [employer] [id number] ity of Visit [facility] [id number] Rick as MATERNAL [id number] Med ical & CHILD [address] [place] [address] 2021-02-05 2021-02-05 Outpatient DANIELALBIN [facility] [id number] [place] 11:17:00 11:17:00 N [id number] da [facility] Program Results Test Description Test Time Test Comments Results Result Comments Source PANEL IDENTIFICATION 2021-07-17 14:34:19 Test Item Value Reference Range Interpretation Comme nts ANTIBODY ID (test code = 245) Anti-D Anti-D, unable to confirm if anti-D is allo or passive from RHIG givenPerformed at [facility] Laboratory [facility] Blood [address] [place], [place] [address]Hvek Free: [phone] No. [id number] [facility] SCREEN (ANGELES) [id number] 17:29:07 Test Item Value Reference Range Interpretation Comments Rubella screen IgG Equivocal Negative (test code = 2696326288) LETICIA (test code = LETICIA) Positive - Indicates the patient was exposed to Rubella through infection or vaccination.Negative - Indicates the patient could be susceptible to Rubella infection.Equivocal - A second specimen should be sent. [facility] [id number] 17:29:07 Test Item Value Reference Range Interpretation Comments VZV IgG antibody Positive Negative (test code = 08351-0) LETICIA (test code = LETICIA) Positive - Indicates the patient was exposed to VZV through infection or vaccination.Negative - Indicates the patient could be susceptible to VZV infection.Equivocal - A second specimen should be sent for testing. [facility] ONLY - SYPHILIS [id number] 15:55:54 Test Item Value Reference Range Interpretation Comments Syphilis IgG/IgM (test Non-reactive Non-reactive code = 54931-7) LETICIA (test code = LETICIA) Non-reactive - No serologic evidence of T. pallidum infection. Cannot exclude incubating or early syphilis. Submit a second specimen in 2-4 weeks if syphilis is clinically suspected. Equivocal - Further testing to follow. Reactive - Further testing to follow. Lab Interpretation (test Normal code = 01254-0) [facility] WORK[facility], BLOOD [id number] 07:43:20 Test Item Value Reference Range Interpretation Comments ABO & RH (test code O NEGATIVE Performe d at [facility] = 20) Laboratory [facility] Blood Bank3 [address] [facility] s [address]Ntsv Free: [phone] A No. [id number] IAT (test code = Positive Performed a t [facility] 1185) Laboratory [facility] Blood Bank3 [facility] s [address]Tivs Free: [phone] A No. [id number] [facility] 1/2 AG-AB WITH [id number] 06:18:01 Test Item Value Reference Range Interpretation Comments HIV Negative Negative Semi-quantitative (test code = 44193-3) LETICIA (test code = Non-reactive for HIV-1 LETICIA) antigen and HIV-1/HIV-2 antibodies. ?No laboratory evidence of HIV infection. ?Repeat in 2-4 weeks if acute HIV infection is suspected. [facility] WITH [id number] 05:27:12 Test Item Value Reference Range Interpretation Comments WBC (test code = See_Comment [Automated 2490-2) message] The sy stem which generated this result transmitted reference range : 4.30 - 11.10 10*3/?L. The reference range was not used to interpret this result as normal/abnormal . RBC (test code = See_Comment [Automated 789-8) message] The sy stem which generated this result transmitted reference range : 3.93 - 5.25 10*6/?L. The reference range was not used to interpret this result as normal/abnormal . HGB (test code = 11.7 g/dL 11.6-15.0 718-7) HCT (test code = 35.0 % 35.7-45.2 L 4544-3) MCV (test code = 87.9 fL 80.6-95.5 787-2) MCH (test code = 29.4 pg 25.9-32.8 785-6) MCHC (test code = 33.4 g/dL 31.6-35.1 786-4) RDW-SD (test code = 44.1 fL 39.0-49.9 85296-0) RDW-CV (test code = 13.8 % 12.0-15.5 788-0) PLT (test code = See_Comment [Automated 777-3) message] The sy stem which generated this result transmitted reference range : 166 - 358 10*3/ ?L. The reference r abimael was not used to interpret this result as normal/abnormal . MPV (test code = 9.5 fL 9.5-12.9 43320-1) NRBC/100 WBC (test See_Comment [Automat ed code = 2377606836) message] The system which generated this result transmitted reference range : 0.0 - 10.0 /100 WBCs. The refer ence range was not u sed to interpret th is result as normal/abnormal . NRBC x10^3 (test code <0.01 See_Comment [Auto mated = [id number]) message] The s ystem which generated this result transmitted reference range : 10*3/?L. The reference range was not used to interpret this result as normal/abnormal . GRAN MAT (NEUT) % 69.3 % (test code = 770-8) IMM GRAN % (test code 2.10 % = 4044057564) LYMPH % (test code = 21.0 % 736-9) MONO % (test code = 6.3 % 5905-5) EOS % (test code = 0.6 % 713-8) BASO % (test code = 0.7 % 706-2) GRAN MAT x10^3(ANC) 4.64 10*3/uL 1.88-7.09 (test code = 4884800848) IMM GRAN x10^3 (test 0.14 10*3/uL 0.00-0.06 H code = 7586339872) LYMPH x10^3 (test code 1.41 10*3/uL 1.32-3.29 = 731-0) MONO x10^3 (test code 0.42 10*3/uL 0.33-0.92 = 742-7) EOS x10^3 (test code = 0.04 10*3/uL 0.03-0.39 711-2) BASO x10^3 (test code 0.05 10*3/uL 0.01-0.07 = 704-7) Lab Interpretation Abnormal (test code = 79970-0) [place] [facility] SURFACE [id number] 05:20:35 Test Item Value Reference Range Interpretation Comments HBsAg Semi-Quantitative (test code = Negative Negative 5195-3) [facility]SE 1 HOUR POST [id number] 04:54:14 Test Item Value Reference Range Interpretation Comments GLUC 1 HR (test code = 5136755446) 90 mg/dL 120-170 L Lab Interpretation (test code = Abnormal 46590-4) [facility]POCT [id number] 14:56:00 Test Item Value Reference Range Interpretation Comments POCT PREG (test code = 1605) Positive On board controls acceptable with C Yes Line (test code = 3574) POCT PREG LOT # (test code = 3575) POCT PREG TEST DATE (test code = 3576) [facility] URINALYSIS W/O SPECIFIC [id number] 14:55:00 Test Item Value Reference Range Interpretation Comments POCT PH U (test code = 3254) 7 mg/dl 5-8 POCT U LEUK EST (test code = 2+ Negative - Negative 3263) POCT U NIT (test code = 3262) negative Negative - Negative POCT U PROT (test code = 3259) trace Negative - Negative POCT U GLU (test code = 3256) normal Negative - Negative POCT U KETONE (test code = 3258) negative Negative - Negative POCT U BLD (test code = 3257) trace Negative - Negative [facility]
[2021-11-04] MEDS ORDERED: OXYTOCIN/LR 20 UNIT/1,000 ML BAG IV SCH (23:45)
--- NOTE | 2021-11-05 00:15 | PREOPHP ---
Date of Admission: 11/04/2021 History Of Present Illness: 26-year-old, 4, para 3, says she was last seen at [facility], but says she was my patient when she came in. The patient said 2 vaginal deliveries, followed by a . She came in saying she was in labor with leaking membranes. She was very uncooperative, kicking the nurses and yelling. When we did manage and exam, she was noted to be 6 cm and within the next 30 minutes was complete and on the perineum. Family History: Noncontributory. Past Medical History: Patient says that she has asthma and uses inhaler occasionally, but still smokes 2 to 3 cigarettes a day. Past Surgical History: She has had one previous . No other surgery. Allergies: SHE SAYS SHE IS ALLERGIC TO LATEX. Medications: No medications. Physical Examination: HEENT: Clear. Pupils equal, round, reactive to light and accommodation. Conjunctivae well perfused. No oral, lingual, or buccal lesions. Chest/Lung: Clear. Heart: Without murmurs. Breasts: Not examined. Abdomen: Obese. Extremities: Clear. Assessment/plan: Patient, as stated, was complete and on the perineum when I entered the room. Admit for delivery. DARRYN/WALLY Voice ID: [id number] MTDD
--- NOTE | 2021-11-05 00:22 | DN ---
Surgeon: Juan Sarmiento MD 26-year-old, 4, para 3, two previous vaginal deliveries, followed by , so this would qualify for vaginal after . The patient according to her dates is 35 weeks and 6 days . She was admitted very obstreperous and combative. When she did allow to check, she was 6 cm, but within next 20 minutes, she was complete and on the perineum. She delivered spontaneously of 8-pound male , Apgars 8 and 9. No episiotomy. No laceration. Schultze delivery of the placenta, whi ch was heavily calcified. Will be saved for a possible pathologic exam. Urinary drug screen ordered . Drop-in lab ordered. Estimated blood loss at this point is 250 cc. Final Diagnoses: Intrauterine gestation at 35 weeks and 6 days according to the dates, but appears t erm by gestational age assessment of the baby. Vaginal after as her last delivery was a . DARRYN/WALLY Voice ID: [id number] Report ID: [id number]
[2021-11-05 00:57] VITALS: BMI 37.1
[2021-11-05] MEDS ORDERED: PENICILLIN 2.5 MU in NA CHLORIDE 0.9% 100 ML IV SCH (01:00)
[2021-11-05 01:38] LABS: Barbiturates NEGATIVE (NEGATIVE); Benzodiazepines NEGATIVE (NEGATIVE); Cocaine NEGATIVE (NEGATIVE); Methadone NEGATIVE (NEGATIVE); Opiates NEGATIVE (NEGATIVE); Phencyclidine NEGATIVE (NEGATIVE); THC Cannibis NEGATIVE (NEGATIVE)
[2021-11-05 01:39] LABS: METHAMPHETAM POSITIVE (NEGATIVE)
[2021-11-05 05:42] LABS: RPR (Rapid Plasma Reagin) NON-REACT (NON-REACT)
[2021-11-05] MEDS ORDERED: ACETAMINOPHEN 500 MG TAB PO PRN (07:23)
[2021-11-05] MEDS ORDERED: Oxycodone HCl/Acetaminophen 1 TAB TAB PO PRN (07:23)
--- NOTE | 2021-11-05 08:00 | PN ---
Since delivery, vital signs are normal. Lochia is normal. She is Rh negative. Baby is also Rh nega tive. Rubella status is immune. Other labs are pending. We will observe the patient today, send he r home tomorrow depending upon what the retread operator does. She is tested positive for amphetamine. information services assistant have been notified. Patient is sleeping this morning very soundly. In spite of stim ulation of her toes, she is not really waking up, so we will wait until later or tomorrow morning to discuss her situation, but right now she is doing quite well. DARRYN/WALLY Voice ID: [id number] Report ID: [id number]
[2021-11-05] MEDS: IBUPROFEN 600 MG TAB PO PRN (09:28)
[2021-11-06] MEDS ORDERED: TDAP (DIPHTH,PERTUSS(ACELL),TET VAC) 0.5 ML VIAL IMVAC ONE ×2 (08:33→09:45)
--- NOTE | 2021-11-06 08:37 | DS ---
Hospital Course: A 26-year-old, 4, para 3. First 2 deliveries vaginal, last delivery C-sect ion. Came in she said at approximately 35 weeks 6 days, in active labor, approximately 3 cm on admis paras, went to complete within next hour or hour and half. Delivered of 8 pounds male , Apgars 8, 9, and 9 approximately. No episiotomy. No laceration. Schultze delivery of the placenta, inspec terrence and noted to be intact and normal. 350 cc or less blood loss. The patient is Rh negative. Baby is Rh negative. Tdap has been offered to the patient. Drug screen showed methamphetamine. Healthcare Business Analyst have been in contact with the patient. Apparently, the baby will be placed with the grandmo ther or some other family member instead of the patient. Full dismissal instructions to report any t emperature elevation of 100 degrees or greater, severe pain, heavy bleeding, or any other type of abn ormalities. Flu shot recommended, although has not got any flu shots now she knows she can go to any pharmacy and get a flu shot. Rubella immune. No other labs available at this point. HIV and hepat itis of course negative. Final Diagnoses: Term intrauterine by gestational age assessment, drop in delivery, positi ve for methamphetamines, (vaginal after ). Rh negative, baby Rh negative, now dis missed. DARRYN/WALLY Voice ID: [id number] Report ID: [id number]
[2021-11-06] MEDS: IBUPROFEN 600 MG TAB PO PRN (10:10)
[2021-11-06 10:18] VITALS: BP 129/82; TEMP 97.9
[2021-11-08 11:45] LABS: HBsAG Nonreactive (Nonreactive)
== END 2021-11-06 13:40 | disposition home or self-care (01) | DRG 806 ==
LOC: L&D 20:44 → 2ND-WC 21:51
PROVIDERS: ADMIT Specialist; ATTEND Specialist
PROC: 10E0XZZ Delivery of Products of Conception, External Approach (ICD-10-PCS; principal; 2021-11-05)
DX: O34.211 Maternal care for low transverse scar from previous cesarean delivery (principal); O99.324 Drug use complicating childbirth; Z37.0 Single live birth; F15.90 Other stimulant use, unspecified, uncomplicated; F17.210 Nicotine dependence, cigarettes, uncomplicated; Z23 Encounter for immunization; Z3A.35 35 weeks gestation of pregnancy; Z91.040 Latex allergy status
CPT/HCPCS: 36415; 80307; 81001; 82947; 85025; 86592; 86762; 86850; 86900; 86901; 87086; 87088; 87340; G0433; J2540; J2590; J7120

== ENCOUNTER 2024-06-08 12:18 | Emergency (ER) | payer OTHER ==
--- OUTSIDE RECORDS SUMMARY | 2024-06-08 12:24 | XMS REPORT | Continuity of Care Document ---
Author Name Unknown Address [address] [facility] [address] [place] [address] [facility] [place] Address [address] [facility] [address] [place] [address] Care Team Providers Care Field Services Analyst Name Role Phone PAULY HUNTER Primary Care Physician Unav ISADORA Hayden Attending Clinician UnavailCANDIDA Stubbs Attending Clinician Unavailable Candida Petersen MD Attending Clinician [phone] Raya Cook CNM Attending Clinician [phone] PAULY HUNTER Attending Clinician Unavail able Elsa WHPauly LE Attending Clinician + SANAM KATHLEEN Attending Clinician Unavailable SANAM KATHLEEN Attending Clinician Unavailable Ultrasound, Ang-Mfm Attending Clinician UnavailSanam Echevarria MD Attending Clinician [phone] Doctor Unassigned, [place] Attending Clinician U navailPARKER Eden B Attending Clinician Unavailable Carter HIGGINBOTHAM, Parker B Attending Clinician [phone] EMANI JENNINGS Attending Clinician Unavailable MATEUS WHITMAN Attending Clinician Unavailmina SCHERER Attending Clinician Unavailable Adrienne Padilla RN Attending Clinician Unavailab Rohan Saravia NP Attending Clinician [phone] ROHAN BORGES Attending Clinician Unavailable CANDIDA PETERSEN Admitting Clinician Unavailable Candida Petersen MD Admitting Clinician NIESHA Admitting Clinician Unavailable Payers Payer Name Policy Type Policy Number Effective Date Expirati on Date Source [facility] ANTHONY GHOSH [id number] 2023 00:00:00 [facility] [place] [id number] 2023 00:00:00 MEDICAID PENDING PENDING 2023 00:00:00 [facility] [id number] 2022 00:00:00 BENJI HALE [id number] 1 00:00:00 S[place] S49 [place] D[place] AMAN [id number] Problems Condition Name Condition Details Condition Category Status Onset Date Resolution Date Last Treatment Date Treating Clinician Comments Source Previous section Previous section Disease Active 06-12 00:00: 00 [facility] Normal labor Normal labor Disease Active 06-12 00:00: 00 [facility] History of syphilis History of syphilis Disease Active 06-12 00:00: 00 [facility] Liveborn , of pineda , born in hospital by vaginal delivery Liveborn , of pineda , born in hospital by vaginal delivery Disease Active 06-12 00:00: 00 [facility] Vacuum-ass isted vaginal delivery Vacuum-ass isted vaginal delivery Disease Active 06-12 00:00: 00 [facility] Vaginal bleeding in , second trimester Vaginal bleeding in , second trimester Disease Active 2022-03 00:00: 00 [facility] 19 weeks gestation of 19 weeks gestation of Disease Active 2022-03 2 00:00: 00 [facility] 39 weeks gestation of 39 weeks gestation of Disease Active 2022-03 2 00:00: 00 [facility] Atypical squamous cells of undetermin ed significan ce (ASCUS) on Papanicola ou smear of cervix Atypical squamous cells of undetermin ed significan ce (ASCUS) on Papanicola ou smear of cervix Disease Active 2022-03 0 00:00: 00 Overview: Formattin g of this note might be different from the original. Repeat pap in 1 year 12/2023 [facility] Trichomona l vaginitis during Trichomona l vaginitis during Disease Active 11-28 00:00: 00 [facility] UTI in UTI in Disease Active 11-28 00:00: 00 Overview: Formattin g of this note might be different from the original. haim neg [facility] Chlamydia infection affecting Chlamydia infection affecting Disease Active 11-28 00:00: 00 Overview: Formattin g of this note might be different from the original. haim neg [facility] Syphilis of mother during Syphilis of mother during Disease Active 11-27 00:00: 00 [facility] Susceptibl e to varicella (non-immun e), currently Susceptibl e to varicella (non-immun e), currently Disease Active 11-27 00:00: 00 Overview: Formattin g of this note might be different from the original. Address pp [facility] Anemia of mother in , antepartum Anemia of mother in , antepartum Disease Active 11-27 00:00: 00 [facility] Inmate in correction al facility Inmate in correction al facility Disease Active 11-26 00:00: 00 [facility] Rubella non-immune status, antepartum Rubella non-immune status, antepartum Disease Active 07-10 00:00: 00 Overview: Formattin g of this note might be different from the original. Address pp [facility] Supervisio n of high-risk Supervisio n of high-risk Disease Active 07-09 00:00: 00 Overview: Formattin g of this note might be different from the original. See scanned records Dr Sarmiento Negative carrier screen reportPan bhargavi negative baby boy 3-24-22H/ H 12.7/39 Hep B non reactive HIV negRubell a immuneBlo od type O-syphili s non reactiveH ep c non reactive [facility] History of History of Disease Active 07-09 00:00: 00 Overview: Formattin g of this note might be different from the original. With 4 in 2021, see scanned records [facility] Supervisio n of high-risk with insufficie nt care Supervisio n of high-risk with insufficie nt care Disease Active 07-09 00:00: 00 Overview: Formattin g of this note might be different from the original. See scanned records Dr Sarmiento Negative carrier screen reportPan bhargavi negative baby boy 3-24-22H/ H 12.7/39 Hep B non reactive HIV negRubell a immuneBlo od type O-syphili s non reactiveH ep c non reactive [facility] Multiparit y Multiparit y Disease Active 07-09 00:00: 00 [facility] Obesity in Obesity in Disease Active 07-09 00:00: 00 [facility] History of section History of section Disease Active 07-09 00:00: 00 Overview: Formattin g of this note might be different from the original. X1, desires see scanned records [facility] Desires (vaginal after ) trial Desires (vaginal after ) trial Disease Active 07-09 00:00: 00 [facility] Tobacco use during Tobacco use during Disease Active 07-09 00:00: 00 Overview: Formattin g of this note might be different from the original. Quit x 1 year ago [facility] Rh negative state in antepartum period Rh negative state in antepartum period Disease Active 07-09 00:00: 00 Overview: Formattin g of this note might be different from the original. Rhogam at 28 weeks [facility] History of asthma History of asthma Disease Active 07-09 00:00: 00 [facility] Allergies, Adverse Reactions, Alerts Allergy Name Allergy Type Status Severity Reaction(s) Onset Date Inactive Date Treating Clinician Comments Source [facility]: 00 [facility] Latex Propensi ty to adverse reaction s Active Hives 07-15 00:00: 00 [facility] Social History Social Habit Start Date Stop Date Quantity Comments Source ASSERTION 2022-09-27 00:00:00 [facility] Sexual orientation [facility] Alcohol intake 2023-06-14 00:00:00 2023-06-14 00:00:00 Ex-drinker (finding) [facility] Cigarettes smoked current (pack per day) - Reported 2022-11-26 00:00:00 2022-11-26 00:00:00 [facility] Tobacco use and exposure 2022-11-26 00:00:00 2022-11-26 00:00:00 Smokeless tobacco non-user [facility] Tobacco Comment 2022-11-26 00:00:00 2022-11-26 00:00:00 3-4 ciggs a day [facility] Exposure to SARS-CoV-2 (event) 2022-06-20 00:00:00 2022-06-30 14:17:00 Not sure [facility] History of Social function 2021-07-09 00:00:00 2021-07-09 00:00:00 [facility] History of tobacco use 2021-07-02 00:00:00 Cigarette Smoker [facility] Sex Assigned At 1995 00:00:00 1995 00:00:00 [facility] Smoking Status Start Date Stop Date Source Ex-smoker 2022-11-26 00:00:00 2022-11-26 00:00:00 [facility] Medications Ordered Medication Name Filled Medication Name Start Date Stop Date Current Medication? Ordering Clinician Indication Dosage Frequency Signature (SIG) Comments Components Source ferrous sulfate tablet 325 mg 06-14 01:00: 00 Yes 325mg 325 mg, Oral, BID, First dose on 06/14/23 at 2000, Until Discontinu ed, Routine [facility] vitamin w/FA tablet 06-14 00:00: 00 Yes [id number] 1{tbl} Take 1 tablet by mouth in the morning. [facility] docusate 100 mg capsule 06-14 00:00: 00 Yes [id number] 200mg Take 2 capsules by mouth once daily as needed for Constipati on. [facility] ferrous sulfate 325 mg (65 mg iron) tablet 06-14 00:00: 00 Yes [id number] 325mg Take 1 tablet by mouth in the morning. [facility] ibuprofen 600 mg tablet 06-14 00:00: 00 Yes [id number] 600mg Take 1 tablet by mouth every 6 (six) hours as needed (Pain). Take with food or milk. [facility] albuterol (VENTOLIN) inhaler 2 Puff 06-13 12:45: 23 Yes 2{puff} 2 Puff, Inhalation , Q6HPRN, Starting on 06/14/23 at 0745, Until Discontinu ed, Routine, Wheezing, Shortness of Breath [facility] HYDROcodone -acetaminop hen (NORCO 5) 5-325 mg tablet 1 tablet 06-13 03:13: 51 Yes 1{tbl} 1 tablet, Oral, Q6HPRN, Starting on 06/13/23 at 2213, Until Discontinu ed, Routine, Pain (scale 7-10) [facility] ibuprofen (IBU) tablet 600 mg 06-13 03:13: 51 Yes 600mg 600 mg, Oral, Q6HPRN, Starting on 06/13/23 at 2213, Until Discontinu ed, Routine, Pain (scale 4-6) [facility] acetaminoph en (TYLENOL) tablet 650 mg 06-13 03:13: 51 Yes 650mg 650 mg, Oral, Q6HPRN, Starting on 06/13/23 at 2213, Until Discontinu ed, Routine, Pain (scale 1-3) [facility] diphenhydrA MINE (BENADRYL) tablet 25 mg 06-13 03:13: 51 Yes 25mg 25 mg, Oral, Q6HPRN, Starting on 06/13/23 at 2213, Until Discontinu ed, Routine, Sleep, Itching [facility] ondansetron (ZOFRAN (PF)) injection 4 mg 06-13 03:13: 51 Yes 4mg 4 mg, Slow IV Push, Q8HPRN, Starting on 06/13/23 at 2212, Until Discontinu ed, Routine, Nausea and Vomiting (N/V) [facility] simethicone (GAS RELIEF (SIMETHICON E)) chewable tablet 160 mg 06-13 03:13: 51 Yes 160mg 160 mg, Oral, PC+HSPRN, Starting on 06/13/23 at 2213, Until Discontinu ed, Routine, Gas [facility] docusate (COLACE) capsule 200 mg 06-13 03:13: 51 Yes 200mg 200 mg, Oral, QDAILYPRN, Starting on 06/13/23 at 3, Until Discontinu ed, Routine, Constipati on [facility] magnesium hydroxide (MILK OF MAGNESIA) 400 mg/5 mL suspension 30 mL 06-13 03:13: 51 Yes 30mL 30 mL, Oral, QDAILYPRN, Starting on 06/13/23 at 3, Until Discontinu ed, Routine, Constipati on [facility] benzocaine- menthol (DERMOPLAST ) 20-0.5 % topical spray 06-13 03:13: 51 Yes Topical, PRN, Starting on 06/13/23 at 2212, Until Discontinu ed, Routine, Perineum discomfort [facility] penicillin g benzathine (BICILLIN L-A) injection 2.4 Million Units 06-13 02:45: 00 06-13 02:07 :00 No 2.410 2.4 Million Units, Intramuscu lar, ONCE, 1 dose, On [facility] 06/13/23 at 2145, RHYS
Re ason for Anti-Infec tive: Documented Infection< br>Documen terrence Infection Site: Other
O ther site: syphilis<b r>Duration of Therapy: Once (ED) [facility] FENTanyl PF (SUBLIMAZE (PF)) injection 100 mcg 06-13 02:15: 00 06-13 01:29 :00 No 100ug 100 mcg, Slow IV Push, ONCE, 1 dose, On 06/13/23 at 2115, Routine [facility] oxytocin (PITOCIN) 30 units in NS 500 mL IV infusion 06-13 01:44: 27 06-13 03:13 :54 No 300mL/h 300 mL/hr, IV Infusion, SEE-INSTRU CTIONS, Starting on 06/13/[address] at 300 mL/hr for 1 hr then 150 mL/hr for 1 hr. For post delivery uterotonic .
[facility] lidocaine 1% (XYLOCAINE) 10 mg/mL (1 %) injection 50 mL 06-13 00:57: 53 06-13 03:13 :54 No 50mL 50 mL, Infiltrati on, PRN - SEE INSTRUCTIO NS, Starting on 06/13/23 at 1956, Until 06/13/23 at 2212, Routine, Local anesthesia , For laceration repair only as a local anesthetic as indicated. [facility] fluconazole (DIFLUCAN) 200 mg tablet 2022-03 00:00: 00 Yes [id number] 200mg Take 1 tablet by mouth in the morning. [facility] metroNIDAZO LE 500 mg tablet 2022-03 00:00: 00 01-03 04:59 :00 No [id number] 2000mg Take 4 tablets by mouth once now for 1 dose. [facility] ampicillin 500 mg capsule 11-28 00:00: 00 12-09 04:59 :00 No [id number] 500mg Take 1 capsule by mouth 4 (four) times daily for 10 days. [facility] metroNIDAZO LE 500 mg tablet 11-28 00:00: 00 11-29 04:59 :00 No [id number] 2000mg Take 4 tablets by mouth once now for 1 dose. [facility] azithromyci n 500 mg tablet 11-28 00:00: 00 11-29 04:59 :00 No [id number] 1000mg Take 2 tablets by mouth once now for 1 dose. [facility] ferrous sulfate 325 mg (65 mg iron) tablet 11-27 00:00: 00 06-14 00:00 :00 No [id number] 325mg Take 1 tablet by mouth in the morning and 1 tablet in the evening. [facility] ascorbic acid, vitamin C, 500 mg tablet 11-27 00:00: 00 06-14 00:00 :00 No [id number] 500mg Take 1 tablet by mouth in the morning and 1 tablet at noon and 1 tablet in the evening. [facility] [id number]- folic acid 29 mg iron- 1 mg per tablet 11-26 00:00: 00 06-14 00:00 :00 No [id number] 1{tbl} Take 1 tablet by mouth in the morning. [facility] penicillin g benzathine (BICILLIN L-A) injection 1.2 Million Units 06-30 20:30: 00 06-30 20:22 :00 No 1.210 1.2 Million Units, Intramuscu lar, ONCE, 1 dose, On Thu06/30/22 at 1530, RHYS
Re ason for Anti-Infec tive: Documented Infection< br>Documen terrence Infection Site: HEENT
D uration of Therapy: Other (see Comments) [facility] amoxicillin -clavulanat e (AUGMENTIN) 875-125 mg per tablet 1 tablet 06-30 20:15: 00 06-30 19:50 :00 No 1{tbl} 1 tablet, Oral, ONCE, 1 dose, On Thu06/30/22 at 1515, Routine
Reason for Anti-Infec tive: Empiric Therapy for Suspected Infection< br>Empiric Therapy Site: HEENT
D uration of therapy: 72 hours [facility] ibuprofen (IBU) tablet 600 mg 06-30 19:30: 00 06-30 19:50 :00 No 600mg 600 mg, Oral, ONCE, 1 dose, On Thu06/30/22 at 1430, RHYS [facility] dexamethaso ne sod phos PF injection 10 mg 06-30 19:30: 00 06-30 19:50 :00 No 10mg 10 mg, Oral, ONCE, 1 dose, On 06/30/22 at 1430, 1 mL [facility] No known medications 07-09 09:54: 16 No [facility] albuterol 90 mcg/actuati on inhaler 08 00:00: 00 07-09 00:00 :00 No [id number] 100 2{puff} Inhale 2 Puffs every 4 (four) hours as needed for Wheezing or Shortness of Breath. [facility] Immunizations Ordered Immunization Name Filled Immunization Name Date Status Comments Source SARS-COV-2 COVID-19 PFIZER VACCINE Unknown Completed [facility] TDAP Unknown Completed [facility] SARS-COV-2 COVID-19 PFIZER VACCINE Unknown Completed [facility] TDAP Unknown Completed [facility] SARS-COV-2 COVID-19 PFIZER VACCINE Unknown Completed [facility] TDAP Unknown Completed [facility] SARS-COV-2 COVID-19 PFIZER VACCINE Unknown Completed [facility] TDAP Unknown Completed [facility] SARS-COV-2 COVID-19 PFIZER VACCINE Unknown Completed [facility] TDAP Unknown Completed [facility] Rho (d) Immune Globulin Unknown Completed [facility] SARS-COV-2 COVID-19 PFIZER VACCINE Unknown Completed [facility] TDAP Unknown Completed [facility] Rho (d) Immune Globulin Unknown Completed [facility] SARS-COV-2 COVID-19 PFIZER VACCINE Unknown Completed [facility] TDAP Unknown Completed [facility] Rho (d) Immune Globulin Unknown Completed [facility] SARS-COV-2 COVID-19 PFIZER VACCINE Unknown Completed [facility] TDAP Unknown Completed [facility] Rho (d) Immune Globulin Unknown Completed [facility] SARS-COV-2 COVID-19 PFIZER VACCINE Unknown Completed [facility] TDAP Unknown Completed [facility] Rho (d) Immune Globulin Unknown Completed [facility] SARS-COV-2 COVID-19 PFIZER VACCINE Unknown Completed [facility] TDAP Unknown Completed [facility] Rho (d) Immune Globulin Unknown Completed [facility] SARS-COV-2 COVID-19 PFIZER VACCINE Unknown Completed [facility] TDAP Unknown Completed [facility] Rho (d) Immune Globulin Unknown Completed [facility] SARS-COV-2 COVID-19 PFIZER VACCINE Unknown Completed [facility] TDAP Unknown Completed [facility] Rho (d) Immune Globulin Unknown Completed [facility] Varicella (varivax)(chicken pox) Unknown Completed [facility] SARS-COV-2 COVID-19 PFIZER VACCINE Unknown Completed [facility] TDAP Unknown Completed [facility] Rho (d) Immune Globulin Unknown Completed [facility] Varicella (varivax)(chicken pox) Unknown Completed [facility] Vital Signs Vital Name Observation Time Observation Value Comments S ource Systolic blood pressure 2023-06-15 12:15:00 128 mm[Hg] [facility] Diastolic blood pressure 2023-06-15 12:15:00 78 mm[Hg] [facility] Heart rate 2023-06-15 12:15:00 86 /min [facility] Body temperature 2023-06-15 12:15:00 36.83 Bernadine [facility] Respiratory rate 2023-06-15 12:15:00 18 /min [facility] Oxygen saturation in Arterial blood by Pulse oximetry 2023-06-15 12:15:00 100 /min [facility] Body height 2023-06-14 02:00:00 175.3 cm [facility] Body weight 2023-06-14 02:00:00 119.659 kg [facility] BMI 2023-06-14 02:00:00 38.96 kg/m2 [facility] Body temperature 2023-01-31 01:15:00 36.11 Bernadine [facility] Respiratory rate 2023-01-31 01:15:00 17 /min [facility] Body height 2023-01-31 01:15:00 175.3 cm [facility] Body weight 2023-01-31 01:15:00 103.42 kg [facility] BMI 2023-01-31 01:15:00 33.67 kg/m2 [facility] Systolic blood pressure 2023-01-27 14:35:00 119 mm[Hg] [place] [facility] Diastolic blood pressure 2023-01-27 14:35:00 64 mm[Hg] [facility] Heart rate 2023-01-27 14:35:00 89 /min [facility] Body temperature 2023-01-27 14:35:00 36 Bernadine [facility] Respiratory rate 2023-01-27 14:35:00 18 /min [facility] Body height 2023-01-27 14:35:00 175.3 cm [facility] Body weight 2023-01-27 14:35:00 103.692 kg [facility] BMI 2023-01-27 14:35:00 33.76 kg/m2 [facility] Systolic blood pressure 2022-12-30 15:09:00 121 mm[Hg] [facility] Diastolic blood pressure 2022-12-30 15:09:00 81 mm[Hg] [facility] Heart rate 2022-12-30 15:09:00 94 /min [facility] Body temperature 2022-12-30 15:09:00 36.39 Bernadine [facility] Respiratory rate 2022-12-30 15:09:00 17 /min [facility] Body height 2022-12-30 15:09:00 175.3 cm [facility] Body weight 2022-12-30 15:09:00 100.064 kg [facility] BMI 2022-12-30 15:09:00 32.58 kg/m2 [facility] Systolic blood pressure 2022-11-26 13:44:00 98 mm[Hg] [facility] Diastolic blood pressure 2022-11-26 13:44:00 64 mm[Hg] [facility] Heart rate 2022-11-26 13:44:00 83 /min [facility] Body temperature 2022-11-26 13:44:00 36.5 Bernadine [facility] Respiratory rate 2022-11-26 13:44:00 18 /min [facility] Body height 2022-11-26 13:44:00 175.3 cm [facility] Body weight 2022-11-26 13:44:00 97.886 kg [facility] BMI 2022-11-26 13:44:00 31.87 kg/m2 [facility] Systolic blood pressure 2022-06-30 20:00:00 116 mm[Hg] [facility] Diastolic blood pressure 2022-06-30 20:00:00 68 mm[Hg] [facility] Heart rate 2022-06-30 20:00:00 107 /min [facility] Body temperature 2022-06-30 20:00:00 37.72 Bernadine [facility] Respiratory rate 2022-06-30 20:00:00 18 /min [facility] Oxygen saturation in Arterial blood by Pulse oximetry 2022-06-30 20:00:00 99 /min [facility] Body height 2022-06-30 19:18:00 170.2 cm [facility] Body weight 2022-06-30 19:18:00 94.802 kg [facility] BMI 2022-06-30 19:18:00 32.73 kg/m2 [facility] Systolic blood pressure 2021-07-09 14:48:00 105 mm[Hg] [facility] Diastolic blood pressure 2021-07-09 14:48:00 61 mm[Hg] [facility] Heart rate 2021-07-09 14:48:00 74 /[facility] 2021-07-09 14:48:00 36.61 Bernadine [facility] Respiratory rate 2021-07-09 14:48:00 20 /min [facility] Body height 2021-07-09 14:48:00 170.2 cm [facility] Body weight 2021-07-09 14:48:00 94.892 kg [facility] BMI 2021-07-09 14:48:00 32.77 kg/m2 [facility] Systolic blood pressure 2021-07-09 14:48:00 105 mm[Hg] [facility] Diastolic blood pressure 2021-07-09 14:48:00 61 mm[Hg] [facility] Heart rate 2021-07-09 14:48:00 74 /min [facility] Body temperature 2021-07-09 14:48:00 36.61 Bernadine [facility] Respiratory rate 2021-07-09 14:48:00 20 /min [facility] Body height 2021-07-09 14:48:00 170.2 cm [facility] Body weight 2021-07-09 14:48:00 94.892 kg [facility] BMI 2021-07-09 14:48:00 32.77 kg/m2 [facility] Procedures Procedure Date / Time Performed Performing Clinician Source CBC WITHOUT DIFF 2023-06-14 19:48:00 Candida Petersen [facility] TRANSFUSE PACKED RBC 2023-06-14 13:24:00 Candida Petersen [facility] PREPARE PACKED RBC 2023-06-14 13:08:15 Candida Petersen [facility] CBC WITH DIFF 2023-06-14 09:26:00 Candida Petersen [facility] HB -MATERNAL HEMORRHAGE SCREEN 2023-06-14 09:26:00 Candida Petersen [facility] HIV 1/2 AG-AB WITH REFLEX 2023-06-14 01:54:00 Chapis Petersen [facility] URINE DRUG (IMMUNOASSAY) - COMPREHENSIVE DRUG SCREEN 2023-06-14 01:02:00 Candida Petersen [facility] CBC WITH DIFF 2023-06-14 01:02:00 Candida Petersen [facility] HEPATITIS B SURFACE ANTIGEN 2023-06-14 01:02:00 Candida Petersen [facility] HB ABO GROUPING 2023-06-14 01:02:00 Candida Petersen [facility] RPR (QUANTITATIVE) 2023-06-14 01:02:00 [facility]MM[facility]LOBULIN 2023-06-14 01:02:00 Candida Petersen [facility] ADC OR JAMILA ONLY - RPR 2023-06-14 01:02:00 Chapis Petersen [facility] ADC CLC OR [facility] ONLY - WET PREP 2023-01-31 02:04:00 Candida Petersen [facility] POCT URINALYSIS 2023-01-27 14:39:00 [facility] Hunter [facility] [facility] SECOND AND THIRD TRIMESTER ULTRASOUND 2023-01-09 16:23:00 Pauly Hunter [facility] URINE CULTURE 2022-12-30 17:05:00 Pauly Hunter [facility] GC & CHLAMYDIA AMPLIFIED ASSAY 2022-12-30 17:05:00 Pauly Hunter [facility] TRICHOMONAS AMPLIFIED ASSAY 2022-12-30 17:05:00 Pauly Hunter [facility] HB ABO GROUPING 2022-12-30 15:43:00 Pauly Hunter [facility] POCT URINALYSIS 2022-12-30 00:00:00 Pauly Hunter [facility] AUTHORIZATION FOR RELEASE OF PHI 2022-12-04 05:01:00 Doctor Unassigned, [place] [facility] ASSIGNMENT OF BENEFITS 2022-11-26 13:31:54 Docto r Unassigned, [place] [facility] POCT TEST 2022-11-26 00:00:00 Uri Hunter [facility] POCT URINALYSIS W/O SPECIFIC GRAVITY 2022-11-26 00:00:00 Pauly Hunter [facility] POCT TEST 2022-06-30 19:25:00 Parker Charles [facility] RAPID STREP SCREEN FOR GROUP A 2022-06-30 19:21:00 Parker Charles [facility] CONSENT/REFUSAL FOR DIAGNOSIS AND TREATMENT 2022-06-30 18:59:07 Doctor Unassigned, [place] [facility] EXTERNAL PROVIDER RECORDS 2021-08-06 05:01:00 Do ctor Unassigned, [place] [facility] GLUCOSE 1 HOUR POST PRANDIAL 2021-07-09 15:52:00 Pauly Hunter [facility] CBC WITH DIFF 2021-07-09 15:52:00 Pauly Hunter [facility] RUBELLA SCREEN IGG 2021-07-09 15:52:00 Nela Hunter [facility] VZV ANTIBODY SCREEN 2021-07-09 15:52:00 Uri Hunter [facility] HEPATITIS B SURFACE ANTIGEN 2021-07-09 15:52:00 Pauly Hunter [facility] PANEL IDENTIFICATION 2021-07-09 15:52:00 Fletcher Hunter [facility] HB ABO GROUPING 2021-07-09 15:52:00 Pauly Hunter [facility] ANTIBODY TITER INTERPS 2021-07-09 15:52:00 Aurelio Hunter [facility] URINE CULTURE 2021-07-09 15:52:00 Pauly Hunter [facility] GC & CHLAMYDIA AMPLIFIED ASSAY 2021-07-09 15:52:00 Pauly Hunter [facility] HIV 1/2 AG-AB WITH REFLEX 2021-07-09 15:52:00 Pauly Hunter [facility] GALV ONLY - SYPHILIS IGG/IGM 2021-07-09 15:52:00 Pauly Hunter [facility] POCT TEST 2021-07-09 00:00:00 Uri Hunter [facility] POCT URINALYSIS W/O SPECIFIC GRAVITY 2021-07-09 00:00:00 Pauly Hunter [facility] Encounters Start Date/Time End Date/Time Encounter Type Admission Type Attending [facility] Care Facility Care Department Encounter ID Source 2023-09-04 22:31:00 2023-09-05 01:04:00 Emergency ER ISADORA MENDEZ [facility] [id number] Gm [facility] 2023-06-13 19:47:00 2023-06-15 11:50:00 Inpatient P CANDIDA PETERSEN [facility] [id number] [facility] 2023-06-13 19:47:00 2023-06-15 11:50:00 Hospital Encounter Candida Petersen [facility] 1..840.114 350.1.13.10 4.2.7.2.686 [id number] [facility] 2023-06-15 00:00:00 2023-06-15 00:00:00 Telephone Raya Cook [facility]NAL & CHILD HEALTH [facility] 1..840.114 350.1.13.10 4.2.7.2.686 [id number] [facility] 2023-02-26 10:00:00 2023-02-26 10:00:00 Outpatient P AKINSIHECTORNELAPAULY [facility] [id number] [facility] 2023-02-19 11:00:00 2023-02-19 11:00:00 Outpatient P [facility] [id number] [facility] 2023-02-12 13:00:00 2023-02-12 13:00:00 Outpatient R [facility] [id number] [facility] 2023-01-31 00:00:00 2023-01-31 00:00:00 Case Management Candida Petersen [facility] 1..840.114 350.1.13.10 4.2.7.2.686 [id number] [facility] 2023-01-30 19:06:00 2023-01-30 20:10:00 Outpatient X CANDIDA PETERSEN [facility] [id number] [facility] 2023-01-30 19:06:00 2023-01-30 20:10:00 Emergency Petersen, Candida Sanchez [facility] 1.2840.114 350.1.13.10 4.2.7.2.686 [id number] [facility] 2023-01-27 09:45:00 2023-01-27 09:45:00 Routine Visit Pauly Hunter [facility] RESIDENT [facility] 1.20.114 350.1.13.10 4.2.7.2.686 [id number] [facility] 2023-01-27 09:45:00 2023-01-27 09:07:46 Outpatient R PAULY HUNTER [facility] [id number] [facility] 2023-01-09 09:30:00 2023-01-09 11:55:07 Outpatient P SANAM KATHLEEN SHANNON [facility] [id number] [facility] 2023-01-09 09:30:00 2023-01-09 11:55:07 Thread Spinner Visit Ultrasound, Sanam Patino [facility] RESIDENT [facility] 1..114 350.1.13.10 4.2.7.2.686 [id number] [facility] 2023-01-09 00:00:00 2023-01-09 00:00:00 Abstract Pauly Hunter [facility] RESIDENT [facility] 1.0.114 350.1.13.10 4.2.7.2.686 [id number] [facility] 2023-01-02 00:00:00 2023-01-02 00:00:00 Telephone Pauly Hunter [facility] RESIDENT [facility] 1.2840.114 350.1.13.10 4.2.7.2.686 [id number] [facility] 2022-12-30 09:45:00 2022-12-30 10:13:21 Outpatient R PAULY HUNTER [facility] [id number] [facility] 2022-12-30 09:45:00 2022-12-30 10:13:21 Routine Visit Pauly Hunter [facility] RESIDENT [facility] 1.2.840.114 350.1.13.10 4.2.7.2.686 [id number] [facility] 2022-12-24 09:00:00 2022-12-24 09:00:00 Outpatient R PAULY HUNTER [facility] [id number] [facility] 2022-12-04 00:00:00 2022-12-04 00:00:00 Orders Only Doctor Unassigned, [place] [facility] 1.840.114 350.1.13.10 4.2.7.2.686 [id number] [facility] 2022-11-28 00:00:00 2022-11-28 00:00:00 Telephone Pauly Hunter [facility] RESIDENT [facility] 1.2.840.114 350.1.13.10 4.2.7.2.686 [id number] [facility] 2022-11-27 00:00:00 2022-11-27 00:00:00 Telephone Pauly Hunter [facility] RESIDENT [facility] 1.2840.114 350.1.13.10 4.2.7.2.686 [id number] [facility] 2022-11-26 08:30:00 2022-11-26 09:26:53 Outpatient R PAULY HUNTER [facility] [id number] [facility] 2022-11-26 08:30:00 2022-11-26 09:26:53 Initial Visit Pauly Hunter [facility] 1.114 350.1.13.10 4.2.7.2.686 [id number] [facility] 2022-11-26 00:00:00 2022-11-26 00:00:00 Orders Only Doctor Unassigned, [place] [facility] 1.114 350.1.13.10 4.2.7.2.686 [id number] [facility] 2022-06-30 14:26:00 2022-06-30 15:32:00 Emergency X PARKER CHARLES [facility] ERT [id number] [facility] 2022-06-30 14:26:00 2022-06-30 15:32:00 Emergency Parker Charles B [facility] 1.84.114 350.1.13.10 4.2.7.2.686 [id number] [facility] 2021-08-15 09:45:00 2021-08-15 09:45:00 Outpatient R [facility] [id number] [facility] 2021-08-15 09:45:00 2021-08-15 09:45:00 Outpatient R EMANI JENNINGS [facility] [id number] [facility] 2021-08-06 09:45:00 2021-08-06 09:45:00 Outpatient R PAULY HUNTER [facility] [id number] [facility] 2021-08-06 09:45:00 2021-08-06 09:45:00 Outpatient R PAULY HUNTER [facility] [id number] [facility] 2021-08-06 00:00:00 2021-08-06 00:00:00 Orders Only Doctor Unassigned, [place] [facility] 1.114 350.1.13.10 4.2.7.2.686 [id number] [facility] 2021-07-25 13:15:00 2021-07-25 13:15:00 Outpatient R MATEUS WHITMAN [facility] [id number] [facility] 2021-07-25 13:15:00 2021-07-25 13:15:00 Outpatient R MATEUS WHITMAN [facility] [id number] [facility] 2021-07-18 00:00:00 2021-07-18 00:00:00 Telephone Pauly Hunter [facility]ILD [facility] 1.2.840.114 350.1.13.10 4.2.7.2.686 [id number] 107 [id number] [facility] 2021-07-16 00:00:00 2021-07-16 00:00:00 Telephone Pauly Hunter [facility] RESIDENT [facility] 1.2.840.114 350.1.13.10 4.2.7.2.686 [id number] [facility] 2021-07-12 00:00:00 2021-07-12 00:00:00 Telephone Pauly Hunter [facility] RESIDENT [facility] 1.2.840.114 350.1.13.10 4.2.7.2.686 [id number] [facility] 2021-07-10 00:00:00 2021-07-10 00:00:00 Telephone Pauly Hunter [facility] RESIDENT [facility] 1.2.840.114 350.1.13.10 4.2.7.2.686 [id number] [facility] 2021-07-09 10:00:00 2021-07-09 10:26:50 Outpatient R PAULY HUNTER [facility] [id number] [facility] 2021-07-09 10:00:00 2021-07-09 10:26:50 Initial Visit Pauly Hunter [facility] RESIDENT [facility] 1.2.840.114 350.1.13.10 4.2.7.2.686 [id number] [facility] 2021-07-09 10:00:00 2021-07-09 10:26:50 Outpatient R PAULY HUNTER [facility] [id number] [facility] 2021-07-09 10:00:00 2021-07-09 10:26:50 Initial Visit Pauly Hunter [facility] RESIDENT [facility] 1.2840.114 350.1.13.10 4.2.7.2.686 [id number] [facility] 2021-07-09 00:00:00 2021-07-09 00:00:00 Orders Only Doctor Unassigned, [place] [facility] 1.2.840.114 350.1.13.10 4.2.7.2.686 [id number] [facility] 2021-02-05 11:17:00 2021-02-05 11:17:[address] [facility] [id number] 2020-11-08 00:00:00 2020-11-08 00:00:00 Letter (Out) Adrienne Padilla [facility] 1.2840.114 350.1.13.10 4.2.7.2.686 [id number] [facility] 2020-11-07 16:00:00 2020-11-07 20:49:00 Emergency Rohan Borges [facility] 1.2.840.114 350.1.13.10 4.2.7.2.686 [id number] [facility] 2020-11-07 16:00:00 2020-11-07 16:00:00 Emergency X ROHAN BORGES [facility] ERT [id number] [facility] Results Test Description Test Time Test Comments Results Result Co mments Source [facility] RBC (in units)2023-06-14 13:08:15* Test Item Value Reference Range Interpretation Comme nts Unit Blood Type (test code = 4410) O Neg ISBT Blood Type Code (test code = 309469) 9500 Unit Number (test code = 4411) [id number] Blood Expiration Date & Time (test code = 419399) [id number] Status Information (test code = 4412) Issued Product Identification (test code = 4413) Red Blood Cells Product Code (test code = 4414) [id number] Performed at [facility] Laboratory Services - [facility] Blood [address] [place] [address]Eexq Free: [phone] No. [id number] Cross Match Result (test code = 4409) Compatible [facility] with [id number] 11:34:57* Test Item Value Reference Range Interpretation Comme nts WBC (test code = 6690-2) 19.38 4.30-11.10 H RBC (test code = 789-8) 3.56 3.93-5.25 L HGB (test code = 718-7) 6.5 g/dL 11.6-15.0 L HCT (test code = 4544-3) 23.2 % 35.7-45.2 L MCV (test code = 787-2) 65.2 fL 80.6-95.5 L MCH (test code = 785-6) 18.3 pg 25.9-32.8 L MCHC (test code = 786-4) 28.0 g/dL 31.6-35.1 L RDW-SD (test code = 46631-7) 47.0 fL 39.0-49.9 RDW-CV (test code = 788-0) 21.8 % 12.0-15.5 H PLT (test code = 777-3) 313 166-358 MPV (test code = 03623-5) 11.3 fL 9.5-12.9 NRBC/100 WBC (test code = 2718847926) 1.3 0.0-10.0 NRBC x10^3 (test code = 9725382877) 0.26 See_Comment [Automated message] The system which generated this result transmitted reference range: 10*3/?L. The reference range was not used to interpret this result as normal/abnormal. GRAN MAT (NEUT) % (test code = 770-8) 79.5 % IMM GRAN % (test code = 6973501935) 2.40 % LYMPH % (test code = 736-9) 11.5 % MONO % (test code = 5905-5) 6.1 % EOS % (test code = 713-8) 0.2 % BASO % (test code = 706-2) 0.3 % GRAN MAT x10^3(ANC) (test code = 6734223885) 15.42 10*3/uL 1.88-7.09 H IMM GRAN x10^3 (test code = 5093954939) 0.46 10*3/uL 0.00-0.06 H LYMPH x10^3 (test code = 731-0) 2.22 10*3/uL 1.32-3.29 MONO x10^3 (test code = 742-7) 1.19 10*3/uL 0.33-0.92 H EOS x10^3 (test code = 711-2) 0.03 10*3/uL 0.03-0.39 BASO x10^3 (test code = 704-7) 0.06 10*3/uL 0.01-0.07 Lab Interpretation (test code = 81156-9) Abnormal [facility] JAMILA ONLY - [id number] 10:44:39* Test Item Value Reference Range Interpretation Comme nts RPR (Qualitative) (test code = 47521-8) Reactive Nonreactive A Lab Interpretation (test cod e = 19999-5) Abnormal [facility] HospitalFetal Maternal Hemo [id number] 10:28:00 * Test Item Value Reference Range Interpretation Comme nts SCREEN (test code = 846) Negative RHIG REQUIRED? (test code = 1747) 1 Syringe Patient is a can didate for RhIg- Patient is Rh Negative and baby is Rh Positive. [facility] HospitalHepatitis B Surface Umsobwp6932-66-72 07:54:05 * Test Item Value Reference Range Interpretation Comme nts HBsAg Semi-Quantitative (brynn t code = 5195-3) 0.09 Negative [facility]HIV 1/2 Ag-Ab with Pwmeiw7820-75-60 04:27:31* Test Item Value Reference Range Interpretation Comme nts HIV Semi-quantitative (test code = 50460-2) 0.08 Negative LETICIA (test code = LETICIA) Non-reactive for HIV-1 antigen and HIV-1/HIV-2 antibodies. ?No laboratory evidence of HIV infection. ?Repeat in 2-4 weeks if acute HIV infection is suspected. [facility] HospitalRHO (D) IMMUNE [id number] 04:15:11* Test Item Value Reference Range Interpretation Comme nts RHIG CANDIDATE? (test code = 5188) Yes- see comment A Patient is a candidate for RhIg- Patient is Rh Negative and baby is Rh Positive.Performe d at [facility] Laboratory Services - [facility] Blood [address] [place] [address]Oscg Free: [phone] No. [id number] Lab Interpretation (test code = 99949-1) Abnormal [facility] with Pgiufhhgegsv4601-77-37 01:29:49* Test Item Value Reference Range Interpretation Comme nts WBC (test code = 6690-2) 13.54 4.30-11.10 H RBC (test code = 789-8) 3.83 3.93-5.25 L HGB (test code = 718-7) 7.1 g/dL 11.6-15.0 L HCT (test code = 4544-3) 24.8 % 35.7-45.2 L MCV (test code = 787-2) 64.8 fL 80.6-95.5 L MCH (test code = 785-6) 18.5 pg 25.9-32.8 L MCHC (test code = 786-4) 28.6 g/dL 31.6-35.1 L RDW-SD (test code = 10475-7) 47.9 fL 39.0-49.9 RDW-CV (test code = 788-0) 22.1 % 12.0-15.5 H PLT (test code = 777-3) 285 166-358 MPV (test code = 60863-6) 10.6 fL 9.5-12.9 NRBC/100 WBC (test code = 2382998746) 2.0 0.0-10.0 NRBC x10^3 (test code = 9996629041) 0.27 See_Comment [Automated messa ge] The system which generated this result transmitted reference range: 10*3/?L. The reference range was not used to interpret this result as normal/abnormal. GRAN MAT (NEUT) % (test code = 770-8) 73.9 % IMM GRAN % (test code = 6341306577) 2.80 % LYMPH % (test code = 736-9) 14.5 % MONO % (test code = 5905-5) 8.1 % EOS % (test code = 713-8) 0.4 % BASO % (test code = 706-2) 0.3 % GRAN MAT x10^3(ANC) (test code = 2078876469) 9.99 10*3/uL 1.88-7.09 H IMM GRAN x10^3 (test code = 2192801221) 0.38 10*3/uL 0.00-0.06 H LYMPH x10^3 (test code = 731-0) 1.97 10*3/uL 1.32-3.29 MONO x10^3 (test code = 742-7) 1.10 10*3/uL 0.33-0.92 H EOS x10^3 (test code = 711-2) 0.06 10*3/uL 0.03-0.39 BASO x10^3 (test code = 704-7) 0.04 10*3/uL 0.01-0.07 Lab Interpretation (test code = 36163-1) Abnormal [facility] HospitalType and Screen - ONCE [id number] 01:15:00 * Test Item Value Reference Range Interpretation Comme nts ABO & RH (test code = 20) O NEGATIVE IAT (test code = 1185) Negative [facility] URINALYSIS W SPECIFIC [id number] 14:39:00* Test Item Value Reference Range Interpretation Comme nts POCT U SP GRAV (test code = 3255) . 1.005-1.025 POCT PH U (test code = 3254) . 5-8 POCT U LEUK EST (test code = 3263) . Negative - N egative POCT U NIT (test code = 3262) . Negative - Negati ve POCT U PROT (test code = 3259) neg Negative - Negat therese POCT U GLU (test code = 3256) neg Negative - Negati ve POCT U KETONE (test code = 3258) . Negative - Neg ative POCT U UROBILI (test code = 3260) . 0.2-1 POCT U BILI (test code = 3261) . Negative - Negat therese POCT U BLD (test code = 3257) . Negative - Negati ve POCT U COLOR (test code = 3266) . POCT U APPEAR (test code = 3267) . [facility] URINALYSIS W SPECIFIC [id number] 15:12:00* Test Item Value Reference Range Interpretation Comme nts POCT U SP GRAV (test code = 3255) . 1.005-1.025 POCT PH U (test code = 3254) . 5-8 POCT U LEUK EST (test code = 3263) . Negative - Negative POCT U NIT (test code = 3262) . Negative - Negati ve POCT U PROT (test code = 3259) trace Negative - Negat therese POCT U GLU (test code = 3256) negative Negative - Negati ve POCT U KETONE (test code = 3258) . Negative - Neg ative POCT U UROBILI (test code = 3260) . 0.2-1 POCT U BILI (test code = 3261) . Negative - Negat therese POCT U BLD (test code = 3257) . Negative - Negati ve POCT U COLOR (test code = 3266) . POCT U APPEAR (test code = 3267) . [facility] [id number] 13:49:00* Test Item Value Reference Range Interpretation Comme nts POCT PREG (test code = 1605) Positive On board controls acceptable with C Line (test code = 3574) Yes POCT PREG LOT # (test code = 3575) POCT PREG TEST DATE ( test code = 3576) [facility] URINALYSIS W/O SPECIFIC [id number] 13:48:00* Test Item Value Reference Range Interpretation Comme nts POCT PH U (test code = 3254) 8 mg/dl 5-8 POCT U LEUK EST (test code = 3263) 1+ Negative - Negative POCT U NIT (test code = 3262) negative Negative - Negati ve POCT U PROT (test code = 3259) trace Negative - Negat therese POCT U GLU (test code = 3256) negative Negative - Negati ve POCT U KETONE (test code = 3258) negative Negative - Neg ative POCT U BLD (test code = 3257) negative Negative - Negati ve [facility] [id number] 19:25:00* Test Item Value Reference Range Interpretation Comme nts POCT PREG (test code = 1605) negative On board controls acceptable with C Line (test code = 3574) present POCT PREG LOT # (test code = 3575) [id number] POCT PREG TEST DATE ( test code = 3576) 10-08-2023 Lab Interpretation (test cod e = 22766-5) Normal [facility] HospitalPANEL [id number] 14:34:19* Test Item Value Reference Range Interpretation Comme nts ANTIBODY ID (test code = 245) Anti-D Anti-D, unable t o confirm if anti-D is allo or passive from RHIG givenPerformed at [facility] Laboratory Services - [facility] Blood [address] [place] [address]Cqiy Free: [phone] No. [id number] [facility] HospitalRUBELLA SCREEN (ANGELES) [id number] 17:29:07 * Test Item Value Reference Range Interpretation Comme [facility] Rubella screen IgG (test code = 5600311535) Equivocal Negative LETICIA (test code = LETICIA) Positive - Indicat es the patient was exposed to Rubella through infection or vaccination.Negative - Indicates the patient could be susceptible to Rubella infection.Equivocal - A second specimen should be sent. [facility] HospitalVZV ANTIBODY [id number] 17:29:07* Test Item Value Reference Range Interpretation Comme nts VZV IgG antibody (test code = 39300-5) Positive Negative LETICIA (test code = LETICIA) Positive - Indicat es the patient was exposed to VZV through infection or vaccination.Negative - Indicates the patient could be susceptible to VZV infection.Equivocal - A second specimen should be sent for testing. [facility] HospitalGALV ONLY - SYPHILIS [id number]/[id number] 15:55:54* Test Item Value Reference Range Interpretation Comme nts Syphilis IgG/IgM (test code = 74158-6) Non-reactive Non-reactive LETICIA (test code = LETICIA) Non-reactive - No serologic evidence of T. pallidum infection. Cannot exclude incubating or early syphilis. Submit a second specimen in 2-4 weeks if syphilis is clinically suspected. Equivocal - Further testing to follow. Reactive - Further testing to follow. Lab Interpretation (test code = 00996-4) Normal [facility] HospitalPRENATAL WORKUP, BLOOD [id number] 07:43:20 * Test Item Value Reference Range Interpretation Comme [facility] ABO & RH (test code = 20) O NEGATIVE Performed at [facility] Laboratory Services - [facility] Blood [address] Free: [phone] No. [id number] IAT (test code = 1185) Positive Performed at [facility] Laboratory Services - [facility] Blood [address] Free: [phone] No. [id number] [facility] HospitalHIV 1/2 AG-AB WITH [id number] 06:18:01* Test Item Value Reference Range Interpretation Comme [facility] HIV Semi-quantitative (test code = 59432-1) Negative Negative LETICIA (test code = LETICIA) Non-reactive for HIV-1 antigen and HIV-1/HIV-2 antibodies. ?No laboratory evidence of HIV infection. ?Repeat in 2-4 weeks if acute HIV infection is suspected. [facility] [id number] 05:27:12* Test Item Value Reference Range Interpretation Comme nts WBC (test code = 6690-2) See_Comment [Automated messa ge] The system which generated this result transmitted reference range: 4.30 - 11.10 10*3/?L. The reference range was not used to interpret this result as normal/abnormal. RBC (test code = 789-8) See_Comment [Automated messa ge] The system which generated this result transmitted reference range: 3.93 - 5.25 10*6/?L. The reference range was not used to interpret this result as normal/abnormal. HGB (test code = 718-7) 11.7 g/dL 11.6-15.0 HCT (test code = 4544-3) 35.0 % 35.7-45.2 L MCV (test code = 787-2) 87.9 fL 80.6-95.5 MCH (test code = 785-6) 29.4 pg 25.9-32.8 MCHC (test code = 786-4) 33.4 g/dL 31.6-35.1 RDW-SD (test code = 08843-8) 44.1 fL 39.0-49.9 RDW-CV (test code = 788-0) 13.8 % 12.0-15.5 PLT (test code = 777-3) See_Comment [Automated messa ge] The system which generated this result transmitted reference range: 166 - 358 10*3/?L. The reference range was not used to interpret this result as normal/abnormal. MPV (test code = 33973-6) 9.5 fL 9.5-12.9 NRBC/100 WBC (test code = 2626626738) See_Comment [Automated Ailvxing net ssage] The system which generated this result transmitted reference range: 0.0 - 10.0 /100 WBCs. The reference range was not used to interpret this result as normal/abnormal. NRBC x10^3 (test code = 0464773033) <0.01 See_Comment [Automated messa ge] The system which generated this result transmitted reference range: 10*3/?L. The reference range was not used to interpret this result as normal/abnormal. GRAN MAT (NEUT) % (test code = 770-8) 69.3 % IMM GRAN % (test code = 2195615305) 2.10 % LYMPH % (test code = 736-9) 21.0 % MONO % (test code = 5905-5) 6.3 % EOS % (test code = 713-8) 0.6 % BASO % (test code = 706-2) 0.7 % GRAN MAT x10^3(ANC) (test code = 3555663488) 4.64 10*3/uL 1.88-7.09 IMM GRAN x10^3 (test code = 4827806097) 0.14 10*3/uL 0.00-0.06 H LYMPH x10^3 (test code = 731-0) 1.41 10*3/uL 1.32-3.29 MONO x10^3 (test code = 742-7) 0.42 10*3/uL 0.33-0.92 EOS x10^3 (test code = 711-2) 0.04 10*3/uL 0.03-0.39 BASO x10^3 (test code = 704-7) 0.05 10*3/uL 0.01-0.07 Lab Interpretation (test code = 53997-2) [facility] [id number] 05:20:35 * Test Item Value Reference Range Interpretation Comme nts HBsAg Semi-Quantitative (brynn t code = 5195-3) Negative Negative [facility] H[facility] [id number] 04:54:14* Test Item Value Reference Range Interpretation Comme nts GLUC 1 HR (test code = 9168645588) 90 mg/dL 120-170 L Lab Interpretation (test cod e = 77612-7) Abnormal [facility] [id number] 14:56:00* Test Item Value Reference Range Interpretation Comme nts POCT PREG (test code = 1605) Positive On board controls acceptable with C Line (test code = 3574) Yes POCT PREG LOT # (test code = 3575) POCT PREG TEST DATE ( test code = 3576) [facility] URINALYSIS W/O SPECIFIC [id number] 14:55:00* Test Item Value Reference Range Interpretation Comme nts POCT PH U (test code = 3254) 7 mg/dl 5-8 POCT U LEUK EST (test code = 3263) 2+ Negative - Negative POCT U NIT (test code = 3262) negative Negative - Negati ve POCT U PROT (test code = 3259) trace Negative - Negat therese POCT U GLU (test code = 3256) normal Negative - Negati ve POCT U KETONE (test code = 3258) negative Negative - Neg ative POCT U BLD (test code = 3257) trace Negative - Negati ve [facility] Consult Notes Date/Time Note Provider Source 2023-06-15 10:57:21 Associated Order(s): CONSULT CLARIFIER-ADULT See prior SW note. MARIBEL Goodiwn Event Attendant - Care Management [facility] [phone] [email or web address] Gwen LÓPEZ [facility] - Health 2023-06-15 10:25:32 Met with MOB to address the following concerns: Insufficient care, +syphilis on 10/2022 and not treated, hx of being incarcerated during this , +amphetamines on admit, possible CPS hx (this is her 5th baby). MOB explains that she was incarcerated from October 2022 until January 2023 and applied for Medicaid and SNAP benefits upon being released from [facility], however states that she was not approved until appx one week before going into labor, therefore was unable to afford care or syphilis treatment after incarceration. Pt has no explanation as to why she left ED AMA 12-23 prior to receiving syphilis injection. Pt denies drug use throughout and states she is unaware of how she could be positive for amphetamines upon admission as she states she has not used since prior to October 2022. CHONG contacted local CPS office to inquire about any open cases. CHONG was provided with contact information for Gricel Patterson, CPS inside solar sales consultant ([phone]). Upon speaking with Mrs. Patterson, she states that a case was just closed on pt in January 2023 and that pt had signed over rights to her youngest son to the paternal grandmother. Pt has a total of 5 children, including . 5 yo daughter, closed adoption, 4 yo daughter, closed adoption, 3 yo daughter who resides with child's father, 2 yo son, who was recently placed by CPS with paternal grandmother. MOB states she plans on returning home with her grandmother, Leanne Tse, at [address] In [facility]. She states that the FOB, Destiny Archibald ([phone]) who resides in [place] plans on being involved in care of NB. NB will remain in house to receive a total of 10 days of ABX for syphilis treatment, started on 06-13-23. SW called in a CPS case to address following concerns. CPS Report ID#: [id number] Grants Director: Viktor, ID: [id number] MARIBEL Goodwin Event Attendant - Care Management [facility] [phone] [email or web address] - Health History and Physical Notes Date/Time Note Provider Source 2023-06-13 20:51:41 TRIAGE HISTORY & PHYSICAL IDENTIFYING DATA Kenny Tse is 27 year old, /White, 39w0d, female with JACQUELINE 06/20/2023, by Ultrasound. : 1995 Primary Care Physician: Pauly Hunter CHIEF COMPLAINT contractions HISTORY OF PRESENT ILLNESS Kenny Tse is a 27 year old female @ 39w0d presented for contractions. SVE complete on presentation. +FM. No VB or LOF. No pre-eclampsia sx or other complaints. PAST OBSTETRIC HISTORY OB History Para Term AB Living 5 4 4 4 SAB IAB Ectopic Multiple Live Births 4 # Outcome Date GA Lbr Fabien/2nd Weight Sex Delivery Anes PTL Lv 5 Current 4 Term 11/04/21 37w5d M VAGINAL ELLIOT KUN 3 Term 09/01/19 40w0d 3175 g F CS-Unspec KUN 2 Term 09/06/18 40w0d 3175 g F NORMAL SPONT KUN 1 Term 08/17/17 40w0d 2722 g F NORMAL SPONT KUN PAST MEDICAL HISTORY Problem list: Patient Active Problem List Diagnosis Date Noted Previous section 06/13/2023 Normal labor 06/13/2023 History of syphilis 06/13/2023 Vaginal bleeding in , second trimester 01/31/2023 39 weeks gestation of 01/31/2023 Atypical squamous cells of undetermined significance (ASCUS) on Papanicolaou smear of cervix 12/12/2022 Trichomonal vaginitis during 11/28/2022 UTI in 11/28/2022 Chlamydia infection affecting 11/28/2022 Syphilis of mother during 11/27/2022 Susceptible to varicella (non-immune), currently 11/27/2022 Anemia of mother in , antepartum 11/27/2022 Inmate in correctional facility 11/26/2022 Rubella non-immune status, antepartum 07/10/2021 Supervision of high-risk 07/09/2021 Multiparity 07/09/2021 Obesity in 07/09/2021 History of section 07/09/2021 History of 07/09/2021 Tobacco use during 07/09/2021 Rh negative state in antepartum period 07/09/2021 History of asthma 07/09/2021 Operations: Past Surgical History: Procedure Laterality Date SECTION 2019 Past Medical History: Diagnosis Date Anemia of mother in , antepartum 11/27/2022 Asthma 2012 As a child. Atypical squamous cells of undetermined significance (ASCUS) on Papanicolaou smear of cervix 12/12/2022 Trichomonal vaginitis during 11/28/2022 CURRENT HEALTH STATUS Medications: Current Facility-Administered Medications Medication Dose Route Frequency Last Rate Last Admin acetaminophen (TYLENOL) tablet 650 mg 650 mg Oral ONCE carboprost (HEMABATE) injection 250 mcg 250 mcg Intramuscular Q2HPRN D5W-LR IV infusion 1,000 mL 1,000 mL IV Infusion TITRATE diphenhydrAMINE (BENADRYL) tablet 25 mg 25 mg Oral ONCE lactated ringers IV infusion 1,000 mL 1,000 mL IV Infusion ONCE lactated ringers IV infusion 500 mL 500 mL IV Infusion PRN - SEE INSTRUCTIONS lidocaine 1% (PF) (XYLOCAINE) injection 0.3 mL 0.3 mL Infiltration PRN - SEE INSTRUCTIONS lidocaine 1% (XYLOCAINE) 10 mg/mL (1 %) injection 50 mL 50 mL Infiltration PRN - SEE INSTRUCTIONS methylergonovine (METHERGINE) injection 0.2 mg 0.2 mg Intramuscular Q4HPRN miSOPROStoL (CYTOTEC) tablet 200 mcg 200 mcg Rectal PRN oxytocin (PITOCIN) 30 units in NS 500 mL IV infusion 600 mL/hr IV Infusion PRN oxytocin (PITOCIN) 30 units in NS 500 mL IV infusion 300 mL/hr IV Infusion SEE-INSTRUCTIONS oxytocin (PITOCIN) 30 units in NS 500 mL IV infusion 600 mL/hr IV Infusion PRN penicillin g benzathine (BICILLIN L-A) injection 2.4 Million Units 2.4 Million Units Intramuscular ONCE sodium citrate-citric acid (BICITRA) 500-334 mg/5 mL solution 30 mL 30 mL Oral PRE-PROCEDURE ONCE tranexamic acid (CYKLOKAPRON) 1,000 mg in NaCl 0.9% (NS) 250 mL piggyback 1,000 mg IV Piggyback PRN Allergies and drug reactions: Latex HOME MEDICATIONS Medications Prior to Admission Medication Sig Dispense Refill Last Dose fluconazole (DIFLUCAN) 200 mg tablet Take 1 tablet by mouth in the morning. 1 tablet 0 ascorbic acid, vitamin C, 500 mg tablet Take 1 tablet by mouth in the morning and 1 tablet at noon and 1 tablet in the evening. 90 tablet 2 ferrous sulfate 325 mg (65 mg iron) tablet Take 1 tablet by mouth in the morning and 1 tablet in the evening. 60 tablet 3 [id number] acid 29 mg iron- 1 mg per tablet Take 1 tablet by mouth in the morning. 90 tablet 3 SOCIAL HISTORY Tobacco History: Social History Tobacco Use Smoking Status Former Packs/day: .05 Types: Cigarettes Start date: 2007 Quit date: 07/02/2021 Years since quittin.9 Smokeless Tobacco Never Tobacco Comments 3-4 ciggs a day Drug History: Social History Substance and Sexual Activity Drug Use Not Currently Alcohol History: Social History Substance and Sexual Activity Alcohol Use Not Currently FAMILY HISTORY Family History Problem Relation Age of Onset No Significant Medical Problems Mother No Significant Medical Problems Father REVIEW OF SYSTEMS General: negative Constitutional: negative Eyes: negative ENT/Mouth: negative Cardiovascular: negative Respiratory: negative Gastrointestinal:negative Genitourinary: see HPI Musculoskeletal: negative Skin/breast: negative Neurological: negative Psychiatric: negative Endocrine: negative Hemat/Lymph: negative Allergic/Immuno:none VITAL SIGNS BP: -- Temp: -- Temp source: -- Pulse: -- Resp: -- SpO2: -- Height: -- Weight: [119.7 kg (263 lb 12.8 oz)] BMI (calculated): [0] PHYSICAL EXAMINATIONS Gen: alert and oriented, well appearing, no distress CV: RRR, normal S1/S2, no m/r/g Resp: normal work of breathing, lungs CTAB Abd: gravid, soft, NTTP Ext: no calf tenderness or edema : SVE c/c/+ 3, SROM with thick mec REVIEW OF LABORATORY, PATHOLOGY, AND RADIOLOGY DATA Lab results: Type & Screen HIV Hep B Syphilis Chlamydia ABO & RH Date Value Ref Range Status 06/13/2023 O NEGATIVE Final No results found for: "HIVMULTIPLEX" No components found for: "HBSHBSAG" Syphilis IgG/IgM Date Value Ref Range Status 11/26/2022 Reactive (A) Non-reactive Final C. trachomatis Nucleic Acid Date Value Ref Range Status 12/30/2022 Negative Negative Final IAT Date Value Ref Range Status 12/30/2022 Negative Final Varicella Rubella Glucose Group B Strep CBC VZV IgG antibody Date Value Ref Range Status 11/26/2022 Equivocal Negative Final Rubella screen IgG Date Value Ref Range Status 11/26/2022 Negative Negative Final GLUC 1 HR Date Value Ref Range Status 11/26/2022 123 120 - 170 mg/dL Final No results found for: "CGBS" HGB Date Value Ref Range Status 06/13/2023 7.1 (L) 11.6 - 15.0 g/dL Final HCT Date Value Ref Range Status 06/13/2023 24.8 (L) 35.7 - 45.2 % Final PLT Date Value Ref Range Status 06/13/2023 285 166 - 358 10*3/?L Final Active Hospital Problems Diagnosis Date Noted Previous section 06/13/2023 Normal labor 06/13/2023 History of syphilis 06/13/2023 39 weeks gestation of 01/31/2023 Anemia of mother in , antepartum 11/27/2022 Supervision of high-risk 07/09/[address] Sarmiento Negative carrier screen report Panorama negative baby boy 3-24-22 H/H 12.7/39 Hep B non reactive HIV neg Rubella immune Blood type O- syphilis non reactive Hep c non reactive Resolved Hospital Problems No resolved problems to display. Present on Admission: Previous section 39 weeks gestation of Anemia of mother in , antepartum Supervision of high-risk Placenta Accreta Screening Screening outcome: A positive screening outcome indicates a history of prior delivery or prior uterine surgery, AND the presence of either a placenta low lying/previa or ultrasound suspicion of PASD in the current . Negative screening. ASSESSMENT AND PLAN Kenny Tse is a 27 year old at 39w0d who presents with contractions. Labor - admit for delivery Previous CD x 1 and x 1 - desires TOLAC Anemia - hemoglobin 7.1 on presentation - T&C x 1 unit ordered + syphilis in 10/2022 - did not receive treatment. - patient left AMA from [facility] L&D when seen in 01/2023 and did not receive treatment - Benzathine penicillin ordered Insufficient care/incarcerate during - will consult transition of care specialist - at [facility] Candida Petersen MD 06/13/2023 9:05 PM T [facility] Notes Date/Time Note Provider Source 2023-06-15 13:53:35 Called [facility] she has no records of patient since now released. Verified that when notified of syphilis, inmates get treated in the [facility]. [facility] notified on 11/28/2023 of syphilis and pt presumptively treated. Verbalized understanding. Phyllis Ames RN 06/15/23 1:54 PM [facility] 2023-06-15 12:47:05 Can you call [facility] and see if this patient was ever treated for syphilis? She delivered at [facility] and there is some question if she was ever treated. See original telephone encounter 11/27/2022. CNM-CERTIFIED NURSE CRM SOLUTION ARCHITECT MIDLEVEL PROVIDER [facility] 2023-06-15 08:31:20 Problem: Discharge Planning - Goal: Adequate for discharge Outcome: Progressing as expected Goal: Mood stable Outcome: Progressing as expected [facility] 2023-06-14 23:37:48 Problem: Discharge Planning - Goal: Adequate for discharge Outcome: Progressing as expected Goal: Mood stable Outcome: Progressing as expected [facility] 2023-06-14 00:44:08 Problem: Discharge Planning - Goal: Adequate for discharge Outcome: Progressing as expected Goal: Mood stable Outcome: Progressing as expected Anne Boo RN [facility] 2023-06-13 21:10:42 DELIVERY BY VACUUM-ASSISTED VAGINAL DELIVERY AFTER Delivery Date: 06/13/2023 Delivery Time: 8:21 PM Delivery Summary Kenny Tse is a 27 year old female @ 39w0d presented for contractions. Previous CD x 1 and x 1. Untreated syphilis. The patient was admitted to the Labor & Delivery unit for labor at 39 weeks. Delivery Physician: Candida Petersen MD Intrapartum Anesthesia/Analgesia: None Mode of Delivery: Delivery of pineda fetus with cephalic presentation Fetus Mode of Delivery: Delivery of pineda fetus with cephalic presentation Delivery: Vacuum Delivery Indication for OVD: prolonged decel and outlet assisted delivery Estimated weight: 7.5 # Head station: outlet Asynclitism: (not recorded) Application of Vacuum: Midposition - Kiwi vacuum cup was applied to head between the 2 fontanelle and over the midline suture. Digital exam was performed to confirm no involvment of cervix or vaginal sidewall within the vacuum. Then vacuum was generated from hand pump until norman was in upper green zone. Traction: OP Delivery - Vacuum traction was initially applied with horizontal direction until nose is under symphysis followed by slow elevation for head flexion. The perineum was pushed with towel-draped hand as the head and mouth was delivered with maternal pushing effort. Upon delivery of the head, vacuum suction was released and moved from application. Number of tractions with contractions: 1 Number of pop-offs: 0 Head Delivery: As the head crowned and distended the perineum, no episiotomy was performed. A blue towel was used to protect the perineum as the head crowned and delivered. The other hand was used to exert pressure on the occiput to control the delivery of the head. The perineum was pushed with a towel-draped hand as the head and mouth was delivered over the perineum. Bulb suction: Not Done: After the delivery of the head, bulb suction was not performed. The head was allowed to rotate externally to achieve natural body posture. Examination of neck revealed no umbilical cord. The shoulder was delivered by gentle downward traction applied to head and downward traction for the delivery of anterior shoulder. This was followed by upward traction with delivery of posterior shoulder and body. After the delivery of , bulb suction was performed from ororpharynx and nostril with removal of thick meconium. A normal, female was delivered. The umbilical cord was double clamped, cut and the was handed off the field to the circulating nurse Placenta Placenta was delivered spontaneously while the abdominal hand lifted the uterus cephalad and other hand keeping the umbilical cord slightly taut. Laceration: First degree right labial laceration Laceration Repair: Minor - lacerations (perineum, sidewall, labial, vaginal floor and/or periurethral) were closed with continuous sutures. . Fourth Stage Fourth stage of labor was managed by uterine massage with abdominal hand and infusion 30 units of pitocin mixed with intravenous fluid. EBL: 300 Complications: None Weight: 3245 g 1 Minute 5 Minute 10 Minute Totals: 8 9 Candida Petersen MD 06/13/2023 9:14 PM [facility] 2023-06-13 19:50:50 Pt arrived being pushing in wheelchair with "contractions" Pt unsure of provider just that they are with [facility]. Not sure how many weeks she is but that her due date is 06/20/2023. Norma Campo RN [facility]
[2024-06-08 12:53] LABS: Absolute Basophils 0.1 K/uL (0-0.5); Absolute Eosinophils 0.2 K/uL (0-0.5); Absolute Lymphocytes (CBC) 1.2 K/uL (0.7-4.9); Absolute Monocytes 0.7 K/uL (0.1-1.3); Absolute Neutrophil 5.4 K/uL (1.8-8.0); Basophils % 1.4 % (0-1.3); Eosinophils % 2.2 % (0-4.4); Hematocrit 21.8 % (36.0-45.0); Hemoglobin 6.4 g/dL (12.0-15.0); Lymphocytes % 16.1 % (15.3-44.8); MCH 16.1 pg (27.0-35.0); MCHC 29.1 g/dL (32.0-36.0); MCV 55.2 fL (80-100); MPV 8.5 fL (7.6-11.3); Monocytes % 9.8 % (3.3-12.3); Neutrophils % 70.5 % (41.7-73.7); Nucleated Red Blood Cells % 0.1 % (0-0); Platelets 338 thou/uL (152-406); RBC Red Blood Cell Count 3.95 M/uL (3.86-4.86)
[2024-06-08 12:57] LABS: Specific Gravity < 1.005 (1.005-1.030); Sqamous Epithelial None Seen /HPF (None Seen); Urine Bacteria None Seen /HPF (<20); Urine Bilirubin NEGATIVE (Negative); Urine Blood Negative (Negative); Urine Clarity Clear (Clear); Urine Color Colorless (Yellow); Urine Culture Reflex Order NOT NEEDED; Urine Glucose NEGATIVE (Negative); Urine Ketones NEGATIVE (Negative); Urine Micro Reflex YN NO BILL MICROSCOPIC; Urine Nitrite NEGATIVE (Negative); Urine Protein NEGATIVE (Negative); Urine RBC None Seen /HPF (None Seen); Urine Urobilinogen Normal (Normal); Urine WBC <5 /HPF (<5)
[2024-06-08 13:28] LABS: ALT/SGPT 28 U/L (13-56); AST/SGOT 28 U/L (15-37); Albumin 3.6 g/dL (3.4-5.0); Albumin/Globulin Ratio 0.9 (1.1-1.8); Alkaline Phosphatase 90 U/L (45-117); BUN Blood Urea Nitrogen 14 mg/dL (7-18); Bicarbonate 27 mEq/L (21-32); Globulin 3.9 g/dL (2.3-3.5); Glomerular Filtration Rate 109 ml/min (=/>90); Glucose Level 109 mg/dL (74-106); HCG, Quantitative < 1 mIU/mL (1-3); Protein, Total 7.5 g/dL (6.4-8.2); Sodium Level 138 mEq/L (136-145)
[2024-06-08 13:36] LABS: Anisocytosis 1+; Blood Morphology Comment NOTED (NOT SEEN); Macrocytosis 1+; Microcytosis 1+; Platelet Estimate ADEQ; White Blood Cell Scan OK (OK)
[2024-06-08 13:37] LABS: Hypochromasia 2+; Ovalocytes SLIGHT; Poikilocytosis 1+; Target Cells FEW; Teardrop Cell FEW
--- NOTE | 2024-06-08 14:23 | RAD REPORT ---
EXAMINATION: US Pelvis Complete CLINICAL INDICATION: Female 28 years old.[facility] MAIN ABD CRAMPING, Bed Name: 13 TECHNIQUE: Real-time ultrasonography of the pelvis was performed transabdominally. COMPARISON: No prior exam. FINDINGS: Limited transabdominal approach. Patient in severe pain, further limiting evaluation. Transvaginal ap proach not performed. UTERUS AND CERVIX: The uterus measures 8.4 cm in length. The uterus is grossly unremarkable. No marlena s seen. The endometrium is near for normal limits in thickness, 1 cm, with no intrauterine visualized.. Bilateral ovaries were not visualized, which limits evaluation. FREE FLUID: No free fluid. IMPRESSION: Limited exam as above. No intrauterine visualized. Please correlate clinically and with ser ial beta hCG levels, and consider follow-up sonographic pelvic imaging when patient condition allows.
--- NOTE | 2024-06-08 17:38 | EDPHYS ---
Physician Documentation [facility] Name: Susanne Fagan Age: 28 yrs Sex: Female : 1995 Arrival Date: 06/08/2024 Time: 12:18 Bed 13 Private MD: ED Physician Maribell Recinos HPI: 06/08 14:15 This 28 yrs old Female presents to ER via Law Enforcement with complaints of gb1 Vaginal Bleeding, Abdominal Cramping - APPROX 3 MONTHS . 14:15 Ms. Fagan is a 28-year-old female brought in by police for concern that she is gb1 miscarrying. She has been having intermittent vaginal bleeding for 3 to 4 weeks. She states about 3 weeks ago she went to her OB and was told she was and even given an appointment to have blood drawn the following week. She was booked into skilled nursing this morning for theft. Patient states that she has been cramping no nausea vomiting no fever. No vaginal discharge that is malodorous. She has no history of STDs and she is taking vitamins. She is G5, P5. 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 - Infectious Disease History:: Denies. - Social history:: Smoking status: unknown. Exam: 14:15 Constitutional: This is a well developed, well nourished patient who is awake, alert, gb1 and in no acute distress. Patient is pale Head/Face: Normocephalic, atraumatic. Eyes: Pupils equal round and reactive to light, extra-ocular motions intact. Lids and lashes normal. Conjunctiva and sclera are non-icteric and not injected. Cornea within normal limits. Periorbital areas with no swelling, redness, or edema. ENT: Nares patent. No nasal discharge, no septal abnormalities noted. Tympanic membranes are normal and external auditory canals are clear. Oropharynx with no redness, swelling, or masses, exudates, or evidence of obstruction, uvula midline. Mucous membranes moist. Neck: Trachea midline, no thyromegaly or masses palpated, and no cervical lymphadenopathy. Supple, full range of motion without nuchal rigidity, or vertebral point tenderness. No Meningismus. Chest/axilla: Normal chest wall appearance and motion. Nontender with no deformity. No lesions are appreciated. Cardiovascular: Regular rate and rhythm with a normal S1 and S2. No gallops, murmurs, or rubs. Normal PMI, no JVD. No pulse deficits. Respiratory: Lungs have equal breath sounds bilaterally, clear to auscultation and percussion. No rales, rhonchi or wheezes noted. No increased work of breathing, no retractions or nasal flaring. Abdomen/GI: Soft, non-tender, with normal bowel sounds. No distension or tympany. No guarding or rebound. No evidence of tenderness throughout. Back: No spinal tenderness. No costovertebral tenderness. Full range of motion. Skin: Warm, dry with normal turgor. Normal color with no rashes, no lesions, and no evidence of cellulitis. MS/ Extremity: Pulses equal, no cyanosis. Neurovascular intact. Full, normal range of motion. Vital Signs: 12:21 BP 121 / 66; Pulse 98; Resp 18; Temp 97.6; Pulse Ox 100% on R/A; Weight 90.72 kg; ph Height 5 ft. 7 in. ; 13:30 BP 123 / 78; Pulse 78; Resp 18; Pulse Ox 99% on R/A; ph 14:30 BP 118 / 69; Pulse 76; Resp 18; Pulse Ox 98% on R/A; ph 16:00 BP 120 / 82; Pulse 79; Resp 18; Pulse Ox 98% on R/A; ph 12:21 Body Mass Index 31.32 (90.72 kg, 170.18 cm) ph MDM: 12:25 Medical Screening Exam initiated gb1 14:15 Data reviewed: vital signs, nurses notes, lab test result(s), CBC, electrolytes. gb1 14:15 ED course: 28-year-old female with intermittent dysfunctional uterine bleeding here gb1 with a critical critically low hemoglobin. No vaginal bleeding on exam. Patient is not I will administer 2 units of PRBC and reevaluate her. She is otherwise vitally stable.. 17:10 ED course: Pt is outside smoking a cigarette and has been released from police custody. gb1 She is not having any vaginal bleeding or any rectal bleeding. She will receive 2u PRBC and be discharged home to follow up- I suspect she has iron deficiency anemia, chronically.. 17:36 ED course: When patient was released by the police she went outside and eloped from the [facility] ER. She is nowhere to be found. I received this information from nursing at 1736.. 06/08 12:26 Order name: CBC with Diff; Complete Time: 13:48 [facility] 06/08 12:26 Order name: CMP; Complete Time: 13:48 [facility] 06/08 12:26 Order name: Quantitative Hcg; Complete Time: 13:48 [facility] 06/08 12:26 Order name: UAM; Complete Time: 13:05 [facility] 06/08 13:10 Order name: CBC Smear Scan; Complete Time: 13:48 [facility] 06/08 13:52 Order name: Packed Rbc Leukored [facility] 06/08 13:55 Order name: ABO/RH typing [facility] 06/08 13:55 Order name: Antibody Screen [facility] 06/08 12:56 Order name: Pelvis Complete; Complete Time: 14:34 [facility] 06/08 12:26 Order name: IV Saline Lock; Complete Time: 12:53 [facility] 06/08 12:26 Order name: Labs collected and sent; Complete Time: 12:53 [facility] 06/08 13:52 Order name: Consent for Blood Transfusion; Complete Time: 14:55 [facility] 06/08 13:52 Order name: IV Saline Lock; Complete Time: 14:34 gb Administered Medications: No medications were administered Disposition Summary: 06/08/24 17:37 Eloped Notes: Disposition: after being seen by provider 1 Reason: unknown gb1 Diagnosis - Iron deficiency anemia, unspecified 1 Discharge Instructions: - Discharge Summary Sheet gb1 - Iron Deficiency Anemia, Adult [facility] Critical care time excluding procedures: 14:15 Critical care time: Bedside Care: 100 minutes, Consultation: 20 minutes. Total time: [facility] 120 minutes Signatures: Dispatcher [employer] Maria Del Carmen Coe, FLORENCE RN ph JorjeMaribell MD MD [facility] Corrections: (The following items were deleted from the chart) 12:27 12:27 1st Trimest Single 1st Fetus+US.RAD.BRZ ordered. [facility] 12:27 12:27 CBC+H.LAB.BRZ ordered. EDMS EDMS 12: 12:27 COMPREHENSIVE METABOLIC PANEL+C.LAB.BRZ ordered. EDMS EDMS : 12:27 Test, Urine+UC.LAB.BRZ ordered. EDMS EDMS : 12:27 QUANTITATIVE HCG+C.LAB.BRZ ordered. EDMS EDMS : 12:27 Urinalysis W/Microscopic+U.LAB.BRZ ordered. EDMS EDMS : 12:27 Test, Urine+UC.LAB.BRZ ordered. EDMS EDMS 15:06 13:53 TYPE AND SCREEN+BB.LAB.BRZ ordered. EDMS EDMS 15:49 15:49 BB Add On+BB.LAB.BRZ ordered. EDMS EDMS
--- NOTE | 2024-06-08 17:38 | ER ---
Nurse's Notes [facility] Name: Susanne Fagan Age: 28 yrs Sex: Female : 1995 Arrival Date: 06/08/2024 Time: 12:18 Bed 13 Private MD: Diagnosis: Iron deficiency anemia, unspecified Presentation: 06/08 12:21 Chief complaint: Patient states: 3 months , today started having lower ph abdominal cramping and had spotting. Coronavirus screen: Vaccine status: Patient reports being unvaccinated. Ebola Screen: No symptoms or risks identified at this time. Initial Sepsis Screen: Does the patient meet any 2 criteria? No. Patient's initial sepsis screen is negative. Does the patient have a suspected source of infection? No. Patient's initial sepsis screen is negative. Risk Assessment: Do you want to hurt yourself or someone else? Patient reports no desire to harm self or others. 12:21 Method Of Arrival: Law Enforcement 12:21 Acuity: MOLLY 3 13:12 Onset of symptoms was June 08, 2024. Triage Assessment: 12:26 General: Appears in no apparent distress. Behavior is calm, cooperative. Pain: Complains of pain in suprapubic area, right lower quadrant and left lower quadrant. Neuro: Level of Consciousness is awake, alert, obeys commands, Oriented to person, place, time, situation. Cardiovascular: Capillary refill < 3 seconds in bilateral fingers Patient's skin is warm and dry. Respiratory: Airway is patent Respiratory effort is even, unlabored. : Reports cramping, vaginal bleeding that is spotty. Derm: Skin is pink, warm \\T\\ dry. Musculoskeletal: Circulation, motion, and sensation intact. Range of motion: intact in all extremities. 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 - Infectious Disease History:: Denies. - Social history:: Smoking status: unknown. Screenin:27 [facility] ED Fall Risk Assessment (Adult) History of falling in the last 3 months, ph including since admission No falls in past 3 months (0 pts) Confusion or Disorientation No (0 pts) Intoxicated or Sedated No (0 pts) Impaired Gait No (0 pts) Mobility Assist Device Used No (0 pt) Altered Elimination No (0 pt) Score/Fall Risk Level 0 - 2 = Low Risk Oriented to surroundings, Maintained a safe environment, Hourly rounding (assess needs \\T\\ fall precautionary measures) done. Abuse screen: Denies threats or abuse. Denies injuries from another. Nutritional screening: No deficits noted. Tuberculosis screening: No symptoms or risk factors identified. Assessment: 12:29 General: SEE TRIAGE ASSESSMENT. ph 13:11 Reassessment: Patient appears in no apparent distress at this time. Patient and/or ph family updated on plan of care and expected duration. Pain level reassessed. Patient is alert, oriented x 3, equal unlabored respirations, skin warm/dry/pink. Pt returned from [facility] reports that pt was unable to tolerate exam, c/o pain. 16:45 Reassessment: Pt not found in room, pt went outside to smoke a cigarette, seen in [facility], stated, " I just need to go to the restroom and I'll be right back in there. I know I still need a blood transfusion.". Vital Signs: 12:21 BP 121 / 66; Pulse 98; Resp 18; Temp 97.6; Pulse Ox 100% on R/A; Weight 90.72 kg; ph Height 5 ft. 7 in. ; 13:30 BP 123 / 78; Pulse 78; Resp 18; Pulse Ox 99% on R/A; ph 14:30 BP 118 / 69; Pulse 76; Resp 18; Pulse Ox 98% on R/A; ph 16:00 BP 120 / 82; Pulse 79; Resp 18; Pulse Ox 98% on R/A; ph 12:21 Body Mass Index 31.32 (90.72 kg, 170.18 cm) ED Course: 12:20 Patient arrived in ED. ph 12:23 Maribell Recinos MD is Attending Physician. gb1 12:23 Triage completed. ph 12:24 Arm band placed on Patient placed in an exam room, on a stretcher, on pulse oximetry. ph 12:26 Maria Del Carmen Barton RN is Primary Nurse. ph 12:28 No provider procedures requiring assistance completed. ph 12:29 Patient has correct armband on for positive identification. Bed in low position. Call ph light in reach. Side rails up X 1. Pulse ox on. NIBP on. Door closed. Noise minimized. Warm blanket given. 12:53 CBC with Diff Sent. ph 12:53 CMP Sent. ph 12:53 UAM Sent. ph 12:53 Quantitative Hcg Sent. ph 12:56 Pelvis Complete In Process Unspecified. EDMS 14:34 ABO/RH typing Sent. cc6 14:35 Inserted saline lock: 20 gauge in left forearm, using aseptic technique. Blood cc6 collected. Flushed with 10 mL NS. Administered Medications: No medications were administered Medication: 12:28 VIS not applicable for this client. ph Outcome: 17:45 Eloped from patient exam room, after seeing physician Time discovered patient gone: ll1 June 08, 2024 at 17:00 17:45 Condition: stable 17:45 Patient left the ED. ll1 Signatures: Dispatcher [employer] Maria Del Carmen Coe RN RN [facility] RN RN [facility] Maribell Recinos MD MD 1 [facility] Fall cc6
[2024-06-08 17:55] VITALS: TEMP 97.6
[2024-06-08 18:06] VITALS: O2SAT 98
[2024-06-08 18:12] VITALS: BP 120/82
== END 2024-06-08 17:45 | disposition left against medical advice (07) ==
LOC: ER 12:18
DX: D50.9 Iron deficiency anemia, unspecified (principal); J45.909 Unspecified asthma, uncomplicated; Z91.040 Latex allergy status
CPT/HCPCS: 36415; 76856; 80053; 81001; 84702; 85025; 86850; 86900; 86901; 86920; 86922; 99283